=== PATIENT | male | born 1945 | race Caucasian/White ===

== ENCOUNTER 2018-10-07 10:31 | Outpatient (CLI) | payer MEDICARE, OTHER, SELFPAY ==
--- NOTE | 2018-10-07 10:32 | DI.RAD.S_ITS ---
PROCEDURE: PAIN L/S TRANSFORAMINAL INJECT INDICATIONS: spinal stenosis FINDINGS: Fluoroscopic spot filming was performed to verify placement of spinal needles at the L5-S1 level(s), as labeled on the films. Appropriate location(s) of the needle tip(s) was confirmed by injection of iodinated contrast. IMPRESSION: Fluoroscopy for pain management. Dictated by: Barbara Larkin M.D. on 10/07/2018 at 16:48 Approved by: Barbara Larkin M.D. on 10/07/2018 at 16:48
[2018-10-07 10:36] VITALS: BP 138/88; PULSE 72; RESP 16; TEMP 36.2; O2SAT 96
[2018-10-07 11:13] VITALS: BP 156/95; PULSE 65; RESP 17; O2SAT 97
[2018-10-07 11:17] VITALS: BP 156/95; PULSE 69; RESP 17; O2SAT 98
[2018-10-07 11:21] VITALS: BP 154/93; PULSE 66; RESP 18; O2SAT 97
[2018-10-07 11:25] VITALS: BP 167/101; PULSE 79; RESP 18; O2SAT 98
[2018-10-07] MEDS: DEXAMETHASONE 10 MG/ML VIAL 20 MG INJ (11:25)
[2018-10-07] MEDS: methylPREDNISolone acetate 80 MG/ML VIAL INJ (11:25)
[2018-10-07] MEDS: IOPAMIDOL 15 ML VIAL 3 ML INJ (11:25)
[2018-10-07] MEDS: BUPIVACAINE 0.25% (PF) VIAL 2 ML INJ (11:25)
[2018-10-07 11:35] VITALS: BP 147/78; PULSE 73; RESP 16; O2SAT 98
--- NOTE | 2018-10-07 11:36 | P.PCN_ITS ---
Procedures Date/Time Date of procedure: 10/07/18 Time of procedure: 11:34 General Procedure description: PREOP DIAGNOSIS 1. FORMAINAL STENOSIS WITH LE SYMPTOMS, POST OP DIAGNOSIS 1. FORMAINAL STENOSIS WITH LE SYMPTOMS, PROCEDURES 1.FLUOROSCOPICALLY GUIDED CONTRAST CONTROLLED TRANSFORAMINAL EPIDURAL STEROID INJECTION - RIGHT L5/S1 TFESI PHYSICIAN: Manuelito Castro DO INDICATIONS: Chris is referred by Dr. Greenberg for treatment of Foraminal Stenosis with right LE Symptoms FINDINGS Foraminal Nerve Root Compression secondary to disc disease and facet hypertrophy DESCRIPTION OF PROCEDURE Following denial of allergy and review of potential side effects and complications, including, but not necessarily limited to, infection, allergic reaction, local tissue breakdown, stroke, temporary or permanent nerve injury, paralysis, and possible , the patient indicated that the patient understood and agreed to proceed. An informed consent document was signed by the patient, witnessed by a nurse, and placed in the patient's chart. Additionally, other treatment options including medications, modalities, and physical therapy were reviewed with the patient. After review of previous anaesthesic history and IV conscious sedation the patient was deemed safe to proceed with todays procedure with IV conscious sedation as ASA class II designation. Safety time-out was performed to confirm patient ID, procedure to be performed and site of procedure. IV sedation was deemed unnecessary and thus not administered by the RN after DO order, during the course of the procedure while the patient remained responsive to all verbal commands In the prone position following sterile prep and drape of the lumbar region, the right L5/S1 posterior neuroforamen was identified fluoroscopically. The skin was anesthetized via a 25-gauge 1.5-inch needle with 1% lidocaine solution. At this point, a 25-gauge 3.5-inch spinal needle was atraumatically introduced and advanced under fluoroscopic guidance through the posterior right L5/S1 neuroforamen to approximately the anterior aspect of the canal. Depth was confirmed on lateral view. Following negative aspiration, injection of approximately 1.5 cc of Isovue 200 under live fluoroscopy in the AP view confirmed excellent flow along the nerve root, into the epidural space without vascular or intrathecal uptake observed Radiological data, including multiple fluoroscopic views of the lumbosacral spine, reveal a spinal needle at the right L5/S1 posterior neuroforamen. Subsequent views show flow of contrast material flowing superiorly and inferiorly along the nerve root confirming epidural flow. Subsequently, a test dose of 1.5 cc of 1% lidocaine solution was administered and patient was observed for two minutes for signs or symptoms of complications , including abdominal pain, shortness of breath, bilateral upper or lower extremity weakness, nausea and vomiting, prior to steroid injection. At this point, a total of 3 cc or 20 mg of dexamethasone and 80mg Depo Medrol was injected without incident. The procedure tolerated the procedure well without signs or symptoms of complications prior to transfer to the recovery area continued monitoring without incident. The patient was then transferred to the recovery area where they were observed for an appropriate time after the injection. The patient reported a VAS score of 7 prior to the procedure and a post-procedure VAS of 0. Total Fluoroscopy Time: 20.9 seconds Total Conscious Sedation Time: 24min POST OP INSTRUCTIONS The patient was provided a Pain Log to continue to record their response to the target-specific procedure prior to follow-up visit with their referring physician. Additionally, specific post-injection care instructions and a contact number to our office were provided if concerns arise regarding possible complications associated with the procedure are suspected. Manuelito Castro DO Complications: none
--- NOTE | 2018-10-07 11:38 | PC.NURSE ---
pt had no sedation and was taken to pre procedure room after assisting him off the table and into a wheelchair. pt stable. resumed monitoring in preprocedure room.
--- NOTE | 2018-10-07 11:41 | PC.NURSE ---
APPROX 1135 PT ARRIVED TO POST PROCEDURE AREA IN STABLE CONDITION. PT WAS NOT GIVEN ANY SEDATION MEDICATION.
== END 2018-10-07 12:05 | disposition home or self-care (01) ==
LOC: RAD 10:32
PROVIDERS: PCP Family Medicine; Visit Provider Physical Medicine & Rehabilitation
DX: M48.062 Spinal stenosis, lumbar region with neurogenic claudication (principal); M51.17 Intervertebral disc disorders with radiculopathy, lumbosacral region
CPT/HCPCS: 64483; J1040; J1100

== ENCOUNTER → 2018-10-30 11:00 | Outpatient (CLI) | payer MEDICARE, OTHER, SELFPAY ==
--- NOTE | 2018-10-30 11:04 | DI.RAD.S_ITS ---
PROCEDURE: XR WRIST LT MIN 3V INDICATIONS: Left thumb pain over metacarpal. TECHNIQUE: 3 views of the wrist were acquired. COMPARISON: None. FINDINGS: No acute fracture or dislocation. There are severe degenerative changes at the first carpometacarpal joint with joint space narrowing, osteophyte formation, and a calcified joint body identified. There is mild degenerative change at the distal radioulnar articulation and first metacarpophalangeal joint. IMPRESSION: Severe degenerative changes of the left first carpometacarpal joint. Dictated by: Aram Virk M.D. on 10/30/2018 at 12:05 Approved by: Aram Virk M.D. on 10/30/2018 at 12:07
== END ==
PROVIDERS: PCP Student in an Organized Health Care Education/Training Program; Visit Provider Student in an Organized Health Care Education/Training Program
DX: M79.642 Pain in left hand (principal); M18.12 Unilateral primary osteoarthritis of first carpometacarpal joint, left hand
CPT/HCPCS: 73110

== ENCOUNTER → 2018-11-18 10:31 | Outpatient (CLI) | payer MEDICARE, OTHER, SELFPAY ==
--- NOTE | 2018-11-18 10:34 | DI.RAD.S_ITS ---
PROCEDURE: XR LUMBAR SPINE MIN 4V INDICATIONS: SPINAL STENOSIS TECHNIQUE: 5 views of the lumbar spine were acquired. COMPARISON: None. FINDINGS: Bones: No fracture or focal osseous destruction. There is diffuse endplate spurring and sclerosis. Multilevel facet arthropathy. Severe narrowing of the L4-L5 and L5-S1 disc spaces. Moderate narrowing of the remaining lumbar disc spaces. Minimal anterolisthesis of L3 on L4 and straightening of the normal lumbar lordosis. There is levoscoliosis of the thoracolumbar spine. Bilateral hip joint degeneration. Soft tissues: Overlying bowel gas pattern is normal. No suspicious soft tissue calcifications. Oblique images: No pars defects. IMPRESSION: Severe multilevel lumbar degenerative disc disease and facet arthropathy, most pronounced at L4-L5 and L5-S1.. Levoscoliosis. Dictated by: Abiodun Gary M.D. on 11/18/2018 at 12:23 Approved by: Abiodun Gary M.D. on 11/18/2018 at 12:25
== END ==
PROVIDERS: Family Provider Student in an Organized Health Care Education/Training Program; PCP Student in an Organized Health Care Education/Training Program; Visit Provider Physical Medicine & Rehabilitation
DX: M48.062 Spinal stenosis, lumbar region with neurogenic claudication (principal); M51.16 Intervertebral disc disorders with radiculopathy, lumbar region; M51.17 Intervertebral disc disorders with radiculopathy, lumbosacral region; M41.85 Other forms of scoliosis, thoracolumbar region; M16.0 Bilateral primary osteoarthritis of hip; M47.26 Other spondylosis with radiculopathy, lumbar region; M47.27 Other spondylosis with radiculopathy, lumbosacral region
CPT/HCPCS: 72110

== ENCOUNTER 2018-12-16 14:00 | Outpatient (CLI) | payer MEDICARE, OTHER, SELFPAY ==
--- NOTE | 2018-12-16 14:03 | DI.RAD.S_ITS ---
PROCEDURE: PAIN L INTERLAMINAR/CAUDAL INJ INDICATIONS: Para Left L4/5 TL RAYMUNDO FINDINGS: Fluoroscopic spot filming was performed to verify placement of spinal needles at the L4-L5 posterior epidural intralaminar notch level, as labeled on the films. Appropriate location(s) of the needle tip(s) was confirmed by injection of iodinated contrast. IMPRESSION: Successful dorsal interlaminar notched needle tip localization for epidural steroid injection. Dictated by: Kendrick Grajeda M.D. on 12/16/2018 at 15:18 Approved by: Kendrick Grajeda M.D. on 12/16/2018 at 15:20
[2018-12-16 14:10] VITALS: BP 131/76; PULSE 70; RESP 18; TEMP 35.9; O2SAT 96
--- NOTE | 2018-12-16 14:20 | PM.PROC.1 ---
Procedures Date/Time Date of procedure: 12/16/18 Time of procedure: 14:51 General Procedure description: PROVIDER: Manuelito Castro DO Operative Note PREOP DIAGNOSIS 1. HNP WITH RADICULAR FEATURES, 2. MULTILEVEL CENTRAL STENOSIS, POST OP DIAGNOSIS 1. HNP WITH RADICULAR FEATURES, 2. MULTILEVEL CENTRAL STENOSIS PROCEDURES 1. FLUORSCOPICALLY GUIDED CONTRAST CONTROLLED INTERLAMINAR EPIDURAL STEROID INJECTION -L4/5 PHYSICIAN: Manuelito Castro DO INDICATIONS: Chris is referred by Dr. Maxwell for treatment of Bilateral Foraminal Stenosis R>L LE symptoms. FINDINGS Multilevel Central Spinal Stenosis with Nerve Root Compression DESCRIPTION OF PROCEDURE Fluoroscopically guided, contrast-controlled para left L4/5 translaminar epidural steroid injection. Following denial of allergy and review of potential side effects and complications, including, but not necessarily limited to, infection, allergic reaction, local tissue breakdown, temporary as well as permanent nerve injury, paralysis, stroke and possible , the patient indicated that the patient understood and agreed to proceed. An informed consent document was signed by the patient, witnessed by a nurse, and placed in the patient's chart. Additionally, other treatment options including modalities, medications, and physical therapy were reviewed with the patient. After review of previous anaesthesic history and IV conscious sedation the patient was deemed safe to proceed with todays procedure with IV conscious sedation as ASA class II designation. Safety time-out was performed to confirm patient ID, procedure to be performed and site of procedure. IV sedation was accomplished with a combination of 3mg was administered by the RN after DO order, titrated to patient comfort during the course of the procedure while the patient remained responsive to all verbal commands In the prone position, following sterile prep and drape of the lumbar region, the para left L4/5 translaminar space was identified fluoroscopically. The skin was anesthetized via a 25-gauge, 1.5-inch needle with 1% lidocaine solution. At this point, a 22-gauge short bevel spinal needle was atraumatically introduced and advanced under fluoroscopic guidance into the region of the para left L4/5 translaminar space. Depth was confirmed on lateral view. Radiological data, including multiple fluoroscopic views of the lumbar spine, reveal a spinal needle at the para left L4/5 translaminar space. Lateral views then show placement of the needle in the epidural space. Subsequent views show contrast material flowing superiorly and inferiorly in the epidural space. No vascular or intrathecal uptake is observed. At this point, using loss of resistance technique with saline and air, the epidural space was entered. This was confirmed following negative aspiration with injection of approximately 1.5 cc of Isovue 200, showing excellent epidural flow without vascular or intrathecal uptake. At this point, 1 cc of 1% lidocaine solution combined with 3 cc or 20 mg of dexamethasone and 80mg Depo medrol was injected without incident. The patient tolerated the procedure well without signs or symptoms of complications prior to transfer to the recovery area continued monitoring without incident. The patient was then transferred to the recovery area where they were observed for an appropriate period of time after the injection. The patient reported a VAS score of 6 prior to the procedure and a post-procedure VAS of 0. Total Fluoroscopy Time: 11.8 seconds, 8.99 mGy Total Conscious Sedation Time: 24min POST OP INSTRUCTIONS The patient was provided a Pain Log to continue to record their response to the target-specific procedure prior to follow-up visit with their referring physician. Additionally, specific post-injection care instructions and a contact number to our office were provided if concerns arise regarding possible complications associated with the procedure are suspected. Manuelito Castro, Complications: none
[2018-12-16] MEDS: MIDAZOLAM 5 MG/5 ML VIAL IV (14:30)
[2018-12-16 14:33] VITALS: BP 144/82; PULSE 70; RESP 13; O2SAT 99
[2018-12-16 14:38] VITALS: BP 159/87; PULSE 83; RESP 20; O2SAT 99
[2018-12-16 14:43] VITALS: BP 122/82; PULSE 86; RESP 21; O2SAT 99
--- NOTE | 2018-12-16 14:50 | PC.NURSE ---
Pt tolerated procedure well. pt alert and awake, able to get off table with minimal assist. Transferred via W/C to pre procedure room for continued monitoring with Monica CESPEDES.
--- NOTE | 2018-12-16 14:53 | P.PCN_ITS ---
Procedures Date/Time Date of procedure: 12/16/18 Time of procedure: 14:51 General Procedure description: PROVIDER: Manuelito Castro DO Operative Note PREOP DIAGNOSIS 1. HNP WITH RADICULAR FEATURES, 2. MULTILEVEL CENTRAL STENOSIS, POST OP DIAGNOSIS 1. HNP WITH RADICULAR FEATURES, 2. MULTILEVEL CENTRAL STENOSIS PROCEDURES 1. FLUORSCOPICALLY GUIDED CONTRAST CONTROLLED INTERLAMINAR EPIDURAL STEROID INJECTION -L4/5 PHYSICIAN: Manuelito Castro DO INDICATIONS: Chris is referred by Dr. Maxwell for treatment of Bilateral Foraminal Stenosis R> L LE symptoms. FINDINGS Multilevel Central Spinal Stenosis with Nerve Root Compression DESCRIPTION OF PROCEDURE Fluoroscopically guided, contrast-controlled para left L4/5 translaminar epidural steroid injection. Following denial of allergy and review of potential side effects and complications, including, but not necessarily limited to, infection, allergic reaction, local tissue breakdown, temporary as well as permanent nerve injury, paralysis, stroke and possible , the patient indicated that the patient understood and agreed to proceed. An informed consent document was signed by the patient, witnessed by a nurse, and placed in the patient's chart. Additionally, other treatment options including modalities, medications, and physical therapy were reviewed with the patient. After review of previous anaesthesic history and IV conscious sedation the patient was deemed safe to proceed with todays procedure with IV conscious sedation as ASA class II designation. Safety time-out was performed to confirm patient ID, procedure to be performed and site of procedure. IV sedation was accomplished with a combination of 3mg was administered by the RN after DO order , titrated to patient comfort during the course of the procedure while the patient remained responsive to all verbal commands In the prone position, following sterile prep and drape of the lumbar region, the para left L4/5 translaminar space was identified fluoroscopically. The skin was anesthetized via a 25-gauge, 1.5-inch needle with 1% lidocaine solution. At this point, a 22-gauge short bevel spinal needle was atraumatically introduced and advanced under fluoroscopic guidance into the region of the para left L4/5 translaminar space. Depth was confirmed on lateral view. Radiological data, including multiple fluoroscopic views of the lumbar spine, reveal a spinal needle at the para left L4/5 translaminar space. Lateral views then show placement of the needle in the epidural space. Subsequent views show contrast material flowing superiorly and inferiorly in the epidural space. No vascular or intrathecal uptake is observed. At this point, using loss of resistance technique with saline and air, the epidural space was entered. This was confirmed following negative aspiration with injection of approximately 1.5 cc of Isovue 200, showing excellent epidural flow without vascular or intrathecal uptake. At this point, 1 cc of 1 % lidocaine solution combined with 3 cc or 20 mg of dexamethasone and 80mg Depo medrol was injected without incident. The patient tolerated the procedure well without signs or symptoms of complications prior to transfer to the recovery area continued monitoring without incident. The patient was then transferred to the recovery area where they were observed for an appropriate period of time after the injection. The patient reported a VAS score of 6 prior to the procedure and a post- procedure VAS of 0. Total Fluoroscopy Time: 11.8 seconds, 8.99 mGy Total Conscious Sedation Time: 24min POST OP INSTRUCTIONS The patient was provided a Pain Log to continue to record their response to the target-specific procedure prior to follow-up visit with their referring physician. Additionally, specific post-injection care instructions and a contact number to our office were provided if concerns arise regarding possible complications associated with the procedure are suspected. Manuelito Castro, Complications: none
[2018-12-16 14:54] VITALS: BP 102/87; PULSE 84; RESP 16; O2SAT 95
--- NOTE | 2018-12-16 14:56 | PC.NURSE ---
ACCEPTED CARE OF PT IN POST PROC AREA. PT IN STABLE CONDITION
[2018-12-16] MEDS: BUPIVACAINE 0.25% (PF) VIAL 2 ML INJ (14:58)
[2018-12-16] MEDS: methylPREDNISolone acetate 80 MG/ML VIAL INJ (14:59)
[2018-12-16] MEDS: IOPAMIDOL 15 ML VIAL 3 ML INJ (14:59)
[2018-12-16] MEDS: DEXAMETHASONE 10 MG/ML VIAL 20 MG INJ (14:59)
[2018-12-16 15:00] VITALS: BP 119/73; PULSE 81; RESP 16; O2SAT 96
--- NOTE | 2018-12-17 13:12 | PC.NURSE ---
Follow up call made and message left as pt didn't answer the phone.
== END 2018-12-16 15:09 | disposition home or self-care (01) ==
LOC: RAD 14:02
PROVIDERS: PCP Student in an Organized Health Care Education/Training Program; Visit Provider Physical Medicine & Rehabilitation
DX: M51.16 Intervertebral disc disorders with radiculopathy, lumbar region (principal); M48.062 Spinal stenosis, lumbar region with neurogenic claudication
CPT/HCPCS: 62323; 99152; J1040; J1100; J2250

== ENCOUNTER → 2019-06-12 11:08 | Outpatient (CLI) | payer MEDICARE, OTHER, SELFPAY ==
[2019-06-12 12:10] LABS: Add Manual Diff / Slide Review NO; Basophils Absolute Auto 100 /uL (0-100); Basophils Percent Auto 0.6 % (0-2); Eosinophils Absolute Auto 200 /uL (0-450); Eosinophils Percent Auto 2.4 % (2-4); Hematocrit 43.3 % (41-53); Hemoglobin 15.1 g/dL (13.5-17.5); Lymphocytes Absolute Auto 1100 /uL (1100-4500); Lymphocytes Percent Auto 10.6 % (25-40); Mean Corpuscular HGB Conc 34.9 % (30-36); Mean Corpuscular Hemoglobin 32.1 PG (26-34); Monocytes Absolute Auto 800 /uL (0-900); Monocytes Percent Auto 7.3 % (3-14); Neutrophils Absolute Auto 8100 /uL (1500-7000); Neutrophils Percent Auto 79.1 % (50-75); Platelet Count 219 X10^3/uL (150-400); Red Cell Distribution Width 13.1 % (11.6-14.8); White Blood Cell Count 10.3 X10^3/uL (4.5-11.0)
[2019-06-12 12:39] LABS: BUN Creatinine Ratio 16.7 (6-22); Blood Urea Nitrogen 20 mg/dL (9-20); Calcium 9.5 mg/dL (8.4-10.2); Carbon Dioxide 30 mmol/L (22-32); Chloride 102 mmol/L (98-107); Estimated Glomerular Filt Rate 59.5 mL/min (>60); Glucose 104 mg/dL (80-110); HEMOLYSIS < 15 (0-50); Sodium 141 mmol/L (137-145)
[2019-06-12 12:51] LABS: Vitamin D 25 Hydroxy (D3) 54.2 ng/mL (30.0-100.0)
[2019-06-12 13:06] LABS: TSH w/ Reflex to FT4 0.84 uIU/mL (0.47-4.68)
== END ==
PROVIDERS: PCP Student in an Organized Health Care Education/Training Program; Visit Provider Student in an Organized Health Care Education/Training Program
DX: E55.9 Vitamin D deficiency, unspecified (principal); R05 Cough; R61 Generalized hyperhidrosis; I10 Essential (primary) hypertension
CPT/HCPCS: 36415; 80048; 82306; 84443; 85025

== ENCOUNTER → 2019-06-15 13:09 | Outpatient (CLI) | payer MEDICARE, OTHER, SELFPAY ==
--- NOTE | 2019-06-15 13:14 | DI.CT.S_ITS ---
PROCEDURE: CT CHEST WO CON INDICATIONS: Cough, wheeze, >40 packyear smoker TECHNIQUE: Noncontrast 5 mm thick sections acquired from the pulmonary apices to the posterior costophrenic angles. 7 mm thick coronal and sagittal MIP reformats were then acquired. For radiation dose reduction, the following was used: automated exposure control, adjustment of mA and/or kV according to patient size. COMPARISON: [facility], CT, CT-IVP, 07/21/2012, 9:13. FINDINGS: Image quality: Excellent. Lungs and pleura: No acute consolidation. Scattered subsegmental atelectasis and/or scarring. 3 mm nodule seen in the subpleural left lung base on image 39 series 4, technically indeterminate. No pleural effusions or pneumothorax. Central and peripheral airways are patent and normal in caliber. Lingular scarring/atelectasis. Mediastinum: Heart size is normal. Coronary artery calcifications are present. No pericardial effusion. No mediastinal adenopathy by size criteria. Thoracic aorta and central pulmonary arteries are normal in size. Esophagus is normal in caliber. No hiatal hernia. Bones and chest wall: No suspicious bony lesions. No vertebral body compression fractures. No axillary or supraclavicular adenopathy by size criteria. Thyroid gland negative. Multilevel discogenic changes. Abdomen: Visualized upper abdominal solid organs and bowel loops appear normal in the absence of contrast. IMPRESSION: No acute consolidation. 3 mm pulmonary nodule involving the left lung base, indeterminate. Early metastatic/malignant possibilities cannot be excluded and therefore recommend followup with noncontrast chest CT in one year. Scattered scarring and atelectasis. Dictated by: Abiodun Gary M.D. on 06/15/2019 at 14:28 Approved by: Abiodun Gary M.D. on 06/15/2019 at 14:34
== END ==
PROVIDERS: PCP Student in an Organized Health Care Education/Training Program; Visit Provider Student in an Organized Health Care Education/Training Program
DX: R05 Cough (principal); R06.2 Wheezing; R91.1 Solitary pulmonary nodule; F17.210 Nicotine dependence, cigarettes, uncomplicated
CPT/HCPCS: 71250

== ENCOUNTER 2019-10-15 13:19 | Outpatient (CLI) | payer MEDICARE, OTHER, SELFPAY ==
--- NOTE | 2019-10-15 13:20 | DI.RAD.S_ITS ---
PROCEDURE: PAIN L INTERLAMINAR/CAUDAL INJ INDICATIONS: SPINAL STENOSIS FINDINGS: Fluoroscopic spot filming was performed to verify placement of spinal needles at the L4-L5 level(s), as labeled on the films. Appropriate location(s) of the needle tip(s) was confirmed by injection of iodinated contrast. IMPRESSION: Fluoroscopy for pain management. Dictated by: Barbara Larkin M.D. on 10/15/2019 at 15:37 Approved by: Barbara Larkin M.D. on 10/15/2019 at 15:38
[2019-10-15 13:30] VITALS: BP 131/80; PULSE 76; RESP 16; TEMP 36.1; O2SAT 94
[2019-10-15 14:10] VITALS: BP 136/81; PULSE 83; RESP 16; O2SAT 98
[2019-10-15] MEDS: fentaNYL 100 MCG/2 ML INJ 50 MCG IV (14:11)
[2019-10-15] MEDS: MIDAZOLAM 5 MG/5 ML VIAL IV (14:11)
[2019-10-15 14:15] VITALS: BP 113/75; PULSE 82; RESP 16; O2SAT 98
[2019-10-15 14:20] VITALS: BP 125/78; PULSE 81; RESP 18; O2SAT 96
--- NOTE | 2019-10-15 14:34 | P.PCN_ITS ---
Procedures Date/Time Date of procedure: 10/15/19 Time of procedure: 14:34 General Procedure description: PROVIDER: Manuelito Castro DO Operative Note PREOP DIAGNOSIS 1. HNP WITH RADICULAR FEATURES, 2. MULTILEVEL CENTRAL STENOSIS, POST OP DIAGNOSIS 1. HNP WITH RADICULAR FEATURES, 2. MULTILEVEL CENTRAL STENOSIS PROCEDURES 1. FLUORSCOPICALLY GUIDED CONTRAST CONTROLLED INTERLAMINAR EPIDURAL STEROID INJECTION -L4/5 PHYSICIAN: Manuelito Castro DO INDICATIONs: Chris is referred by Dr. Maxwell for treatment of Bilateral Foraminal Stenosis R>L LE symptoms. FINDINGS Multilevel Central Spinal Stenosis with Nerve Root Compression DESCRIPTION OF PROCEDURE Fluoroscopically guided, contrast-controlled L4/5 translaminar epidural steroid injection. Following review of allergy and review of potential side effects and complications, including, but not necessarily limited to, infection, allergic reaction, local tissue breakdown, temporary as well as permanent nerve injury, paralysis, stroke and possible , the patient indicated that the patient understood and agreed to proceed. An informed consent document was signed by the patient, witnessed by a nurse, and placed in the patient's chart. Additionally, other treatment options including modalities, medications, and physical therapy were reviewed with the patient. After review of previous anaesthesic history and IV conscious sedation the patient was deemed safe to proceed with todays procedure with IV conscious sedation as ASA class II designation. Safety time-out was performed to confirm patient ID, procedure to be performed and site of procedure. IV sedation was a ccomplished with a combination of 2mg of Versed and 50mcg of Fentanyl was administered by the RN after DO order, titrated to patient comfort during the course of the procedure while the patient remained responsive to all verbal commands In the prone position, following sterile prep and drape of the lumbar region, the L4/5 translaminar space was identified fluoroscopically. The skin was anesthetized via a 25-gauge, 1.5-inch needle with 1% lidocaine solution. At this point, a 22-gauge short bevel spinal needle was atraumatically introduced and advanced under fluoroscopic guidance into the region of the L4/5 translaminar space. Depth was confirmed on lateral view. Radiological data, including multiple fluoroscopic views of the lumbar spine, reveal a spinal needle at the L4/5 translaminar space. Lateral views then show placement of the needle in the epidural space. Subsequent views show contrast material flowing superiorly and inferiorly in the epidural space. No vascular or intrathecal uptake is observed. At this point, using loss of resistance technique with saline and air, the epidural space was entered. This was confirmed following negative aspiration with injection of approximately 1.5 cc of Isovue 200, showing excellent epidural flow without vascular or intrathecal uptake. At this point, 1 cc of 1% lidocaine solution combined with 3cc or 20mg of dexamethasone and 6mg betamethasone was injected without incident. The patient tolerated the procedure well without signs or symptoms of complications prior to transfer to the recovery area continued monitoring w ithout incident. The patient was then transferred to the recovery area where they were observed for an appropriate period of time after the injection. The patient reported a VAS score of 6 prior to the procedure and a post- procedure VAS of 0. Total Fluoroscopy Time: 11.8 seconds, 8.99 mGy Total Conscious Sedation Time: 24min POST OP INSTRUCTIONS The patient was provided a Pain Log to continue to record their response to the target-specific procedure prior to follow-up visit with their referring physician. Additionally, specific post-injection care instructions and a contact number to our office were provided if concerns arise regarding possible complications associated with the procedure are suspected. Manuelito Castro DO Complications: none
[2019-10-15] MEDS: BETAMETHASONE 30 MG/5 ML MDV 6 MG INJ (14:36)
[2019-10-15] MEDS: IOPAMIDOL 15 ML VIAL 3 ML INJ (14:36)
[2019-10-15] MEDS: BUPIVACAINE 0.25% (PF) VIAL 2 ML INJ (14:36)
[2019-10-15] MEDS: DEXAMETHASONE 10 MG/ML VIAL 20 MG INJ (14:36)
[2019-10-15 14:39] VITALS: BP 122/71; PULSE 77; RESP 16; O2SAT 94
--- NOTE | 2019-10-15 14:39 | PC.NURSE ---
Post procedure transfer note: VSS, O2 SAt WNL on 2L throughout procedure. Able to transfer to w/c from procedure table without difficulties. No complaints of pain or unususal numbness or tingling to lower extremities. Handoff report given to Cely Phillips RN.
--- NOTE | 2019-10-15 14:40 | PC.NURSE ---
ACCEPTED CARE OF PT IN POST PROC AREA IN STABLE CONDITION.
[2019-10-15 14:43] VITALS: BP 119/70; PULSE 76; RESP 16; O2SAT 94
== END 2019-10-15 14:54 | disposition home or self-care (01) ==
PROVIDERS: PCP Student in an Organized Health Care Education/Training Program; Visit Provider Physical Medicine & Rehabilitation
DX: M51.16 Intervertebral disc disorders with radiculopathy, lumbar region (principal); M48.062 Spinal stenosis, lumbar region with neurogenic claudication
CPT/HCPCS: 62323; 99152; J0702; J1100; J2250; J3010

== ENCOUNTER → 2020-05-12 11:03 | Outpatient (CLI) | payer MEDICARE, OTHER, SELFPAY ==
--- NOTE | 2020-05-12 11:07 | DI.MRI.S_ITS ---
PROCEDURE: MR LUMBAR SPINE WO CON INDICATIONS: Spinal stenosis TECHNIQUE: Noncontrast sagittal T1 spin echo and T2 fast echo, sagittal STIR, axial T1 and T2 fast spin echo through the lumbar spine. In cases with scoliosis, additional coronal T2 fast spin echo may be performed. COMPARISON: [facility], MR, L-SPINE WITHOUT CONTRAST, 08/08/2017, 10:42. [facility], CR, XR LUMBAR SPINE MIN 4V, 11/18/2018, 10:38. [facility], MR, L-SPINE WITHOUT CONTRAST, 09/24/2012, 8:35. FINDINGS: Image quality: Excellent. Alignment and Curvature: There is minimal retrolisthesis seen at T12-L1, L4-L5, and L5-S1, with minimal anterolisthesis at L3-L4. Bone Marrow: Marrow is of normal overall signal. Scattered foci are seen, which are hyperintense on T1-weighted and T2-weighted imaging, which are most consistent with benign vertebral body hemangiomas. No acute vertebral body compression fractures. Spinal Cord: Conus medullaris terminates at the L1 level. Visualized cord demonstrates normal signal and size. Paraspinous Soft Tissues: No paravertebral masses. T12-L1: Moderate to severe loss of disc height and disc signal are seen. Bridging endplate osteophytes are seen. Posteriorly projected endplate osteophytes are seen. Reactive marrow endplate changes are seen, which are hyperintense on T1-weighted and T2-weighted imaging and most consistent with fatty metaplasia (Modic type II changes). Moderate disc bulge is seen, which is eccentric to the right. Moderate facet joint hypertrophy is seen. There is moderate right-sided and no left-sided neural foraminal narrowing seen. Mild to moderate central canal narrowing is seen. Stable from the prior study. L1-L2: The disc height is well-preserved. Loss of disc signal is seen at this level. No neural foraminal or central canal narrowing can be seen. Stable from the prior study. L2-L3: Moderate loss of disc height is seen. Loss of disc signal is seen. Moderate disc bulge is seen, which is eccentric to the right. There is moderate to prominent facet hypertrophy seen, right worse than left. There is moderate to severe bilateral neural foraminal narrowing seen. There is a degree of compression seen upon the exiting nerve roots. Moderate to severe central canal narrowing is seen, which is exacerbated by prominent epidural fat posteriorly, as on series 5 image 15. When comparison is made with the prior examination, these findings are similar. L3-L4: Phpm-tu-hihvckki loss of disc height and disc signal can be seen. Moderate disc bulge is seen, with a central/left disc extrusion, as on series 5 image 18 and on series 2 image 8. Moderate to severe facet hypertrophy is seen. There is moderate right-sided and at least moderate left-sided neural foraminal narrowing seen in severe central canal narrowing seen, as on series 5 image 19. The central canal narrowing is exacerbated by prominent epidural fat posteriorly. The disc extrusion is new compared to 2017. L4-L5: Moderate to severe loss of disc height and disc signal are seen. Reactive marrow endplate changes are seen, which are hyperintense on T1-weighted and T2-weighted imaging and most consistent with fatty metaplasia (Modic type II changes). Bridging endplate osteophytes are seen. Posteriorly projected endplate osteophytes are seen. Moderate disc bulge is seen, which is eccentric to the left. There is at least moderate facet hypertrophy seen at this level. There is at least moderate bilateral neural foraminal narrowing seen at this level. Moderate central canal narrowing is seen. Relatively prominent epidural fat seen. When comparison is made with the prior examination, these findings are similar. L5-S1: Moderate loss of disc height is seen. Loss of disc signal is seen. Moderate disc bulge is seen. There is a central disc protrusion seen. Moderate facet joint hypertrophy is seen. There is moderate right-sided and at least moderate left-sided neural foraminal narrowing seen. Minimal central canal narrowing is seen. No significant change from the prior. IMPRESSION: There is a new disc extrusion seen at the L3-L4 level, with severe central canal narrowing. Otherwise, stable relatively prominent degenerative changes are seen. Dictated by: Star Smith M.D. on 05/12/2020 at 10:52 Approved by: Star Smith M.D. on 05/12/2020 at 11:00
== END ==
PROVIDERS: PCP Student in an Organized Health Care Education/Training Program; Referring Provider Physical Medicine & Rehabilitation; Visit Provider Physical Medicine & Rehabilitation
DX: M51.16 Intervertebral disc disorders with radiculopathy, lumbar region (principal); M51.17 Intervertebral disc disorders with radiculopathy, lumbosacral region; M47.26 Other spondylosis with radiculopathy, lumbar region; M47.27 Other spondylosis with radiculopathy, lumbosacral region
CPT/HCPCS: 72148

== ENCOUNTER → 2020-06-06 09:15 | Outpatient (CLI) | payer MEDICARE, OTHER, SELFPAY ==
[2020-06-07 13:59] LABS: COVID19 Sendout NOT DETECTED (Not Detect)
== END ==
PROVIDERS: PCP Student in an Organized Health Care Education/Training Program; Visit Provider Physician Assistant
DX: Z01.812 Encounter for preprocedural laboratory examination (principal)
CPT/HCPCS: 87635

== ENCOUNTER 2020-06-09 13:53 | Outpatient (CLI) | payer MEDICARE, OTHER, SELFPAY ==
[2020-06-09] VITALS (7 sets, daily range): BP systolic 122–146; BP diastolic 73–81; PULSE 69–83; RESP 15–16; TEMP 36.8; O2SAT 95–98
--- NOTE | 2020-06-09 13:55 | DI.RAD.S_ITS ---
PROCEDURE: PAIN L INTERLAMINAR/CAUDAL INJ INDICATIONS: SPONDYLOSIS FINDINGS: Fluoroscopic spot filming was performed to verify placement of spinal needles at the L4-L5 paramedian interlaminar level(s), as labeled on the films. Appropriate location(s) of the needle tip(s) was confirmed by injection of iodinated contrast. IMPRESSION: Successful needle tip localization at the L4-5 level for translaminar epidural steroid injection. Dictated by: Kendrick Grajeda M.D. on 06/09/2020 at 16:22 Approved by: Kendrick Grajeda M.D. on 06/09/2020 at 16:22
[2020-06-09] MEDS: MIDAZOLAM 5 MG/5 ML VIAL IV (14:48)
[2020-06-09] MEDS: IOPAMIDOL 15 ML VIAL 3 ML INJ (14:58)
[2020-06-09] MEDS: BUPIVACAINE 0.25% (PF) VIAL 2 ML INJ (14:58)
[2020-06-09] MEDS: BETAMETHASONE 30 MG/5 ML MDV 6 MG INJ (14:58)
[2020-06-09] MEDS: DEXAMETHASONE 10 MG/ML VIAL 20 MG INJ (14:58)
--- NOTE | 2020-06-09 15:05 | P.PCN_ITS ---
Date/Time/Diagnoses Date of procedure: 06/09/20 Time of procedure: 15:05 Pre-procedure diagnosis: 1. HNP WITH RADICULAR FEATURES, 2. MULTILEVEL CENTRAL STENOSIS, Post-procedure diagnosis: same Procedure Notes Procedure: 1. FLUOROSCOPICALLY GUIDED CONTRAST CONTROLLED INTERLAMINAR EPIDURAL STEROID INJECTION - Para Left L4/5 Indications: Chris is referred by Dr. Maxwell for treatment of Bilateral Foraminal Stenosis R>L LE symptoms. Physician: Manuelito Castro Total Fluoroscopy time (seconds): 6 Total sedation minutes: 24 Complications: none Procedure in detail & Post-procedure care: FINDINGS Multilevel Central Spinal Stenosis with Nerve Root Compression DESCRIPTION OF PROCEDURE Fluoroscopically guided, contrast-controlled L4/5 translaminar epidural steroid injection. Following review of allergy and review of potential side effects and complications, including, but not necessarily limited to, infection, allergic reaction, local tissue breakdown, temporary as well as permanent nerve injury, paralysis, stroke and possible , the patient indicated that the patient understood and agreed to proceed. An informed consent document was signed by the patient, witnessed by a nurse, and placed in the patient's chart. Additionally, other treatment options including modalities, medications, and physical therapy were reviewed with the patient. After review of previous anaesthesic history and IV conscious sedation the patient was deemed safe to proceed with today?s procedure with IV conscious sedation as ASA class II designation. Safety time-out was performed to confirm patient ID, procedure to be performed and site of procedure. IV sedation was accomplished with a combination of 2mg of Versed was administered by the RN after DO order, titrated to patient comfort during the course of the procedure while the patient remained responsive to all verbal commands In the prone position, following sterile prep and drape of the lumbar region, the L4/5 translaminar space was identified fluoroscopically. The skin was anesthetized via a 25-gauge, 1.5-inch needle with 1% lidocaine solution. At this point, a 22-gauge short bevel spinal needle was atraumatically introduced and advanced under fluoroscopic guidance into the region of the L4/5 translaminar space. Depth was confirmed on lateral view. Radiological data, including multiple fluoroscopic views of the lumbar spine, reveal a spinal needle at the L4/5 translaminar space. Lateral views then show placement of the needle in the epidural space. Subsequent views show contrast material flowing superiorly and inferiorly in the epidural space. No vascular or intrathecal uptake is observed. At this point, using loss of resistance technique with saline and air, the epidural space was entered. This was confirmed following negative aspiration with injection of approximately 1.5 cc of Isovue 200, showing excellent epidural flow without vascular or intrathecal uptake. At this point, 1 cc of 1% lido nhan solution combined with 3cc or 20mg of dexamethasone and 6mg betamethasone was injected without incident. The patient tolerated the procedure well without signs or symptoms of complications prior to transfer to the recovery area continued monitoring without incident. The patient was then transferred to the recovery area where they were observed for an appropriate period of time after the injection. The patient reported a VAS score of 6 prior to the procedure and a post- procedure VAS of 0. POST OP INSTRUCTIONS The patient was provided a Pain Log to continue to record their response to the target-specific procedure prior to follow-up visit with their referring physician. Additionally, specific post-injection care instructions and a contact number to our office were provided if concerns arise regarding possible complications associated with the procedure are suspected.
--- NOTE | 2020-06-09 15:12 | PC.NURSE ---
1510:arrived to pre proc room via , stable transfer from wc to chair. monitoring resumed
== END 2020-06-09 15:34 | disposition home or self-care (01) ==
LOC: RAD 13:55
PROVIDERS: PCP Student in an Organized Health Care Education/Training Program; Referring Provider Physical Medicine & Rehabilitation; Visit Provider Physical Medicine & Rehabilitation
DX: M51.16 Intervertebral disc disorders with radiculopathy, lumbar region (principal); M48.061 Spinal stenosis, lumbar region without neurogenic claudication
CPT/HCPCS: 62323; 99152; J0702; J1100; J2250; J3010

== ENCOUNTER → 2020-06-21 10:48 | Outpatient (CLI) | payer MEDICARE, OTHER, SELFPAY ==
--- NOTE | 2020-06-21 11:09 | DI.CT.S_ITS ---
PROCEDURE: CT CHEST WO CON INDICATIONS: Pulmonary nodule TECHNIQUE: Noncontrast 5 mm thick sections acquired from the pulmonary apices to the posterior costophrenic angles. 1 mm lung window, 5 mm thick coronal and sagittal and 7 mm axial MIP reformats were then acquired. For radiation dose reduction, the following was used: automated exposure control, adjustment of mA and/or kV according to patient size. COMPARISON: [facility], CT, CT CHEST WO [facility], 06/15/2019, 13:12. FINDINGS: Image quality: Excellent. Lungs and pleura: No acute air space opacities. Curvilinear opacity in the lingula is unchanged and likely represents atelectasis or scarring. No new or enlarging pulmonary nodules. Stable 3 mm subpleural pulmonary nodule in the left lower lobe, (3/167). Minimal pleural thickening in the left lower thorax is unchanged. Mild atelectasis at the right lung base. No pleural effusions or pneumothorax. Central and peripheral airways are patent and normal in caliber. Mediastinum: Heart size is normal. Coronary artery calcifications. No pericardial effusion. No mediastinal adenopathy by size criteria. Thoracic aorta and central pulmonary arteries are normal in size. Esophagus is normal in caliber. No hiatal hernia. Bones and chest wall: Minimal gynecomastia. No suspicious bony lesions. No vertebral body compression fractures. No axillary or supraclavicular adenopathy by size criteria. Thyroid gland is unremarkable . Abdomen: Visualized upper abdominal solid organs and bowel loops appear normal in the absence of contrast. IMPRESSION: No metastatic disease identified. Stable 3 mm left lower lobe subpleural nodule. No new or enlarging pulmonary nodules. No adenopathy seen. Dictated by: Sina Casillas M.D. on 06/21/2020 at 18:33 Approved by: Sina Casillas M.D. on 06/21/2020 at 18:40
== END ==
PROVIDERS: PCP Student in an Organized Health Care Education/Training Program; Referring Provider Student in an Organized Health Care Education/Training Program; Visit Provider Student in an Organized Health Care Education/Training Program
DX: R91.1 Solitary pulmonary nodule (principal); I25.10 Atherosclerotic heart disease of native coronary artery without angina pectoris
CPT/HCPCS: 71250

== ENCOUNTER → 2020-08-17 15:20 | Outpatient (CLI) | payer MEDICARE, OTHER, SELFPAY ==
[2020-08-17 16:23] LABS: BUN Creatinine Ratio 13.9 (6-22); Blood Urea Nitrogen 14 mg/dL (9-20); Calcium 8.9 mg/dL (8.4-10.2); Carbon Dioxide 28 mmol/L (22-32); Chloride 101 mmol/L (98-107); Estimated Glomerular Filt Rate > 60.0 mL/min (>60); Glucose 106 mg/dL (80-110); HEMOLYSIS < 15 (0-50); Potassium 4.4 mmol/L (3.4-5.1); Sodium 136 mmol/L (137-145)
== END ==
PROVIDERS: PCP Student in an Organized Health Care Education/Training Program; Referring Provider Student in an Organized Health Care Education/Training Program; Visit Provider Student in an Organized Health Care Education/Training Program
DX: I10 Essential (primary) hypertension (principal); Z79.1 Long term (current) use of non-steroidal anti-inflammatories (NSAID)
CPT/HCPCS: 36415; 80048

== ENCOUNTER → 2021-08-24 07:54 | Outpatient (CLI) | payer MEDICARE, OTHER, SELFPAY ==
--- NOTE | 2021-08-24 | DI.ECHO.S_ITS ---
[facility]---------[facility] +---------+ : : [address] : [place] : : : : [id number] : : : : Phone: [phone] +---------+ Echocardiogram Report + + :Name: CHRISTOPHER FUNES Study Date: 08/24/2021 Height: 67 in : :[facility] ReadingLocation: Weight: 150 lb : : Gender: Male BSA: 1.8 m2 : :: 1945 Age: 76 yrs BP: 141/99 mmHg: :Reason For Study: ATHEROSCLEROSIS : :Ordering Physician: JOLLY, : :MAYLIN Richard Performed By: Adrienne Simon : :Referring: MAYLIN HOOKS : + + Interpretation Summary The ejection fraction is estimated to be 55-60%. Normal diastolic function. Normal right ventricular systolic function. Mild tricuspid regurgitation. Normal PASP. Procedure: A two-dimensional transthoracic echocardiogram with color flow and Doppler was performed. The study quality was technically adequate. Comparison is made with the echocardiogram of 01/06/2018. [facility] [employer]. The patient was in sinus rhythm with heart rates between 75-81 bpm during the exam. Left Ventricle: The left ventricle is normal in size and wall thickness. The ejection fraction is estimated to be 55-60%. Diastolic parameters suggest probable normal left ventricular diastolic function and normal filling pressures. Right Ventricle: The right ventricle is normal in size and function. Atria: The left atrial size is normal. Right atrial size is normal. There is no Doppler evidence for an interatrial shunt. Mitral Valve: The mitral valve is normal in structure and function. There is no mitral regurgitation noted. Aortic Valve: The aortic valve is trileaflet. The aortic valve opens well. There is no aortic valve stenosis. No aortic regurgitation is present. Tricuspid Valve: The tricuspid valve is normal in structure and function. There is mild tricuspid regurgitation. The right ventricular systolic pressure is estimated to be at least 25-30 mmHg based on an estimated right atrial pressure of 3 mm Hg. Pulmonic Valve: The pulmonic valve is not well seen, but is grossly normal. There is no pulmonic valvular regurgitation. Great Vessels: The aortic root is normal size. The ascending aorta is mildly enlarged. The IVC is of normal diameter and collapses greater than 50% with a sniff. This suggests a low right atrial pressure of 3 mm Hg. Pericardium/ Pleura There is no pericardial effusion. There is no pleural effusion. MMode/2D Measurements & Calculations LVIDd: 4.4 cm LVOT diam: 2.3 cm LVIDs: 3.4 cm Ao root diam: 3.7 cm FS: 23.7 % asc Aorta Diam: 3.7 cm IVSd: 0.70 cm Ao Arch Diam (Prox Trans): 2.9 cm LVPWd: 0.84 cm LV delaney. diameter/BSA (cm/m^2): 2.5 LV sys. diameter/BSA (cm/m^2): 1.9 LA A2 area: 19.8 cm2 RA long axis: 5.3 cm LA A4 area: 16.2 cm2 RA area: 15.3 cm2 LA length (vol): 5.0 cm RA vol: 37.7 ml LA vol: 54.2 ml RA : 21.1 ml/m2 LA vol index: 30.3 ml/m2 IVC diam: 1.2 cm RVD1 (basal): 3.9 cm RVD2 (mid): 3.5 cm TAPSE: 2.0 cm Doppler Measurements & Calculations Ao V2 max: 95.2 cm/sec LVOT Max Pal: 62.8 cm/sec Ao V2 mean: 72.4 cm/sec LV V1 max P.6 mmHg Ao max P.6 mmHg LV V1 VTI: 12.4 cm Ao mean P.3 mmHg LEX(I,D): 2.4 cm2 Ao V2 VTI: 21.2 cm LEX(V,D): 2.7 cm2 sev ratio: 0.58 LEX indexed to BSA (cm^2/m^2): 1.3 MV E max pal: 48.3 cm/sec TR max pal: 239.0 cm/sec MV A max pal: 55.1 cm/sec TR max P.8 mmHg MV E/A: 0.88 PA V2 max: 92.3 cm/sec Med Peak E' Pal: 8.6 cm/sec PA V2 mean: 57.9 cm/sec E/E' med: 5.6 PA mean P.6 mmHg Lat Peak E' Pal: 7.0 cm/sec PA pr(Accel): 37.0 mmHg E/E' lat: 6.9 E/e' average: 6.3 MV dec time: 0.22 sec SV(LVOT): 50.1 ml Reading Physician:10:38 AM
--- NOTE | 2021-08-24 | DI.US.S_ITS ---
PROCEDURE: US RETRO PERITONEAL LIMITED INDICATIONS: ATHEROSCLEROSIS. RULE OUT ABDOMINAL AORTIC ANERUYSM. TECHNIQUE: Real time scanning was performed of the aorta and iliac arteries, with image documentation. COMPARISON: [facility], , ABD AORTA ANEURYSM SCREENING, 10/09/2013, 8:37. FINDINGS: Aorta: Proximal aortic diameter measures 2.2 cm. Mid-aorta measures 2.0 cm. Distal aortic diameter is 2.5 cm. Iliac arteries: Right common iliac artery measures 1.8 cm. Left common iliac artery measures 1.7 cm. IMPRESSION: Mild ectasia of the abdominal aorta and iliac arteries without jeff aneurysm. Dictated by: Jono Lei M.D. on 08/24/2021 at 12:21 Approved by: Jono Lei M.D. on 08/24/2021 at 12:24
== END ==
PROVIDERS: PCP Student in an Organized Health Care Education/Training Program; Referring Provider Internal Medicine Cardiovascular Disease; Visit Provider Internal Medicine Cardiovascular Disease
DX: I70.90 Unspecified atherosclerosis (principal)
CPT/HCPCS: 76775; 93306

== ENCOUNTER → 2021-09-05 10:26 | Outpatient (CLI) | payer MEDICARE, OTHER, SELFPAY ==
--- NOTE | 2021-09-05 | DI.RAD.S_ITS ---
PROCEDURE: XR CHEST 2V INDICATIONS: Shortness of breath TECHNIQUE: 2 views of the chest were acquired. COMPARISON: [facility], , CHEST 1 VIEW, 12/06/2015, 11:20. FINDINGS: Surgical changes and devices: None. Lungs and pleura: Lungs are clear. No pleural effusions or pneumothorax. Mediastinum: Mediastinal contours are normal. Heart size is normal. Bones and chest wall: No suspicious bony abnormalities. Soft tissues appear unremarkable. IMPRESSION: No acute process. Dictated by: Randolph Cintron M.D. on 09/05/2021 at 13:52 Approved by: Randolph Cintron M.D. on 09/05/2021 at 13:53
== END ==
PROVIDERS: PCP Internal Medicine; Referring Provider Internal Medicine; Visit Provider Internal Medicine
DX: R06.02 Shortness of breath (principal); R06.2 Wheezing
CPT/HCPCS: 71046

== ENCOUNTER → 2022-05-10 10:06 | Outpatient (CLI) | payer MEDICARE, OTHER, SELFPAY ==
--- NOTE | 2022-05-10 10:11 | DI.RAD.S_ITS ---
PROCEDURE: XR CHEST 2V INDICATIONS: Dyspnea, possible pulm HTN, past tobacco, SY TECHNIQUE: 2 views of the chest were acquired. COMPARISON: [facility], CR, XR CHEST 2V, 09/05/2021, 10:23. FINDINGS: Surgical changes and devices: None. Lungs and pleura: Prominent central/perihilar vasculature. No airspace opacity. No pleural effusion or pneumothorax. Mediastinum: Mediastinal contours are normal. Heart size is normal. Bones and chest wall: No suspicious bony abnormalities. Soft tissues appear unremarkable. IMPRESSION: Prominent central/perihilar vasculature is nonspecific. This can be seen in the setting of pulmonary hypertension but also passive venous congestion. Dictated by: Wang Avila M.D. on 05/10/2022 at 10:53 Approved by: Wang Avila M.D. on 05/10/2022 at 10:56
[2022-05-10 10:52] LABS: Add Manual Diff / Slide Review NO; Basophils Absolute Auto 0 /uL (0-100); Basophils Percent Auto 0.8 % (0-2); Eosinophils Absolute Auto 300 /uL (0-450); Hematocrit 41.1 % (41-53); Lymphocytes Absolute Auto 1000 /uL (1100-4500); Lymphocytes Percent Auto 16.2 % (25-40); Mean Corpuscular Hemoglobin 31.2 PG (26-34); Mean Corpuscular Volume 91.7 fL (80-100); Monocytes Absolute Auto 600 /uL (0-900); Monocytes Percent Auto 10.2 % (3-14); Neutrophils Absolute Auto 4000 /uL (1500-7000); Neutrophils Percent Auto 67.8 % (50-75); Platelet Count 232 X10^3/uL (150-400); Red Blood Cell Count 4.48 X10^6/uL (4.5-5.9); Red Cell Distribution Width 13.5 % (11.6-14.8); White Blood Cell Count 5.9 X10^3/uL (4.5-11.0)
[2022-05-10 12:08] LABS: Alanine Aminotransferase 21 IU/L (<50); Albumin Globulin Ratio 1.4 (1.0-2.8); Alkaline Phosphatase 46 U/L (38-126); Aspartate Aminotransferase 30 IU/L (17-59); BUN Creatinine Ratio 15.2 (6-22); Bilirubin Total 0.6 mg/dL (0.2-1.3); Blood Urea Nitrogen 16 mg/dL (9-20); Calcium 8.6 mg/dL (8.4-10.2); Carbon Dioxide 30 mmol/L (22-32); Chloride 99 mmol/L (98-107); Estimated Glomerular Filt Rate > 60 mL/min (>60); Globulin 2.9 g/dL (1.7-4.1); Glucose 112 mg/dL (80-110); HEMOLYSIS < 15 (0-50); Potassium 5.1 mmol/L (3.4-5.1); Sodium 136 mmol/L (137-145); Total Protein 6.9 g/dL (6.3-8.2)
[2022-05-10 12:33] LABS: TSH w/ Reflex to FT4 0.96 uIU/mL (0.47-4.68)
== END ==
PROVIDERS: PCP Internal Medicine; Referring Provider Pediatrics; Visit Provider Pediatrics
DX: I70.90 Unspecified atherosclerosis (principal); R06.00 Dyspnea, unspecified
CPT/HCPCS: 36415; 71046; 80053; 84443; 85025

== ENCOUNTER → 2022-06-18 08:58 | Outpatient (CLI) | payer MEDICARE, OTHER, SELFPAY ==
--- NOTE | 2022-06-18 08:59 | DI.ECHO.S_ITS ---
[facility]---------+ [facility] +---------+ : : [address] : [place] : : : : [id number] : : : : Phone: [phone] +---------+ Echocardiogram Report + + :Name: CHRISTOPHER FUNES Study Date: 06/18/2022 Height: 67 in : :[facility] ReadingLocation: Weight: 150 lb : : Gender: Male BSA: 1.8 m2 : :: 1945 Age: 77 yrs BP: 147/94 mmHg: :Reason For Study: RICHARD LINN HTN : :Ordering Physician: LOGAN, : :JEANNINE Magallon Performed By: Adrienne Simon : :Referring: JEANNINE LUCIA : + + Interpretation Summary The ejection fraction is estimated to be 50-55%. Diastolic parameters suggest probable normal left ventricular diastolic function and normal filling pressures. The right ventricle is normal in size and function. There is mild tricuspid regurgitation. The right ventricular systolic pressure is estimated to be at least 26 mmHg based on an estimated right atrial pressure of 3 mm Hg. Compared to the prior study dated 08/24/2021, the ejection fraction now appears low normal. Procedure: A two-dimensional transthoracic echocardiogram with color flow and Doppler was performed. The study quality was technically adequate. Comparison is made with the echocardiogram of 08/24/2021. The patient was in sinus rhythm with heart rates between 69-80 bpm during the exam. Left Ventricle: The left ventricle is normal in size. The ejection fraction is estimated to be 50-55%. Diastolic parameters suggest probable normal left ventricular diastolic function and normal filling pressures. Right Ventricle: The right ventricle is normal in size and function. Atria: The left atrial size is normal. The right atrium is normal in size. There is no Doppler evidence for an interatrial shunt. Mitral Valve: The mitral valve is normal in structure and function. There is trace mitral regurgitation. Aortic Valve: The aortic valve is trileaflet. The aortic valve opens well. There is no aortic valve stenosis. No aortic regurgitation is present. Tricuspid Valve: There is mild tricuspid regurgitation. The right ventricular systolic pressure is estimated to be at least 26 mmHg based on an estimated right atrial pressure of 3 mm Hg. Pulmonic Valve: The pulmonic valve is not well visualized. There is no pulmonic valvular regurgitation. Great Vessels: The aortic root is normal size. The ascending aorta could not be visualized. The IVC is of normal diameter and collapses greater than 50% with a sniff. This suggests a low right atrial pressure of 3 mm Hg. Pericardium/ Pleura There is no pericardial effusion. There is no pleural effusion. MMode/2D Measurements & Calculations LVIDd: 4.8 cm LVOT diam: 2.1 cm LVIDs: 4.1 cm Ao root diam: 3.6 cm FS: 14.7 % Ao Arch Diam (Prox Trans): 3.4 cm EPSS: 1.4 cm IVSd: 1.1 cm LVPWd: 1.0 cm LV delaney. diameter/BSA (cm/m^2): 2.7 LV sys. diameter/BSA (cm/m^2): 2.3 LA A2 area: 20.9 cm2 RA long axis: 5.2 cm LA A4 area: 19.1 cm2 RA area: 18.5 cm2 LA length (vol): 5.6 cm RA vol: 56.2 ml LA vol: 60.3 ml RA : 31.4 ml/m2 LA vol index: 33.7 ml/m2 IVC diam: 1.3 cm RVD1 (basal): 3.7 cm RVD2 (mid): 2.6 cm TAPSE: 2.0 cm Doppler Measurements & Calculations Ao V2 max: 103.6 cm/sec LVOT Max Pal: 75.8 cm/sec Ao V2 mean: 73.2 cm/sec LV V1 max P.3 mmHg Ao max P.3 mmHg LV V1 VTI: 14.8 cm Ao mean P.4 mmHg LEX(I,D): 2.6 cm2 Ao V2 VTI: 20.6 cm LEX(V,D): 2.6 cm2 sev ratio: 0.72 LEX indexed to BSA (cm^2/m^2): 1.4 MV E max pal: 55.7 cm/sec TR max pal: 241.9 cm/sec MV A max pal: 82.9 cm/sec TR max P.4 mmHg MV E/A: 0.67 PA V2 max: 78.8 cm/sec Med Peak E' Pal: 6.5 cm/sec PA V2 mean: 51.0 cm/sec E/E' med: 8.5 PA mean P.2 mmHg Lat Peak E' Pal: 8.5 cm/sec PA Accel Time: 0.13 sec E/E' lat: 6.5 E/e' average: 7.5 MV dec time: 0.18 sec SVLVOT): 53.5 ml Reading Physician:12:59 PM
== END ==
PROVIDERS: PCP Internal Medicine; Referring Provider Pediatrics; Visit Provider Pediatrics
DX: I07.1 Rheumatic tricuspid insufficiency (principal); R06.00 Dyspnea, unspecified; I70.90 Unspecified atherosclerosis; G47.33 Obstructive sleep apnea (adult) (pediatric)
CPT/HCPCS: 93306

== ENCOUNTER → 2022-07-12 07:41 | Outpatient (CLI) | payer MEDICARE, OTHER, SELFPAY ==
--- NOTE | 2022-07-12 | DI.NM.S_ITS ---
PROCEDURE: NM AMILCAR PERF SPECT REST & STR Rest and exercise myocardial perfusion SPECT with gated imaging and ejection fraction RADIOPHARMACEUTICAL: 10.0 mCi Tc-99m sestamibi IV at rest and 25.9 mCi Tc-99m sestamibi IV at peak exercise. A [id number] was performed. INDICATIONS: Dyspnea TECHNIQUE: Radiopharmaceutical was injected at peak stress test, and also at rest. SPECT images were obtained. SPECT myocardial perfusion images were displayed in short axis, horizontal long axis, and vertical long axis views. Gated images were reviewed using [employer] software. COMPARISON: None. CARDIAC STRESS: A standard Arpan treadmill exercise tolerance test was performed by the patient under the supervision of an attending staff. The patient exercised for 5 minutes and 07 seconds; 7.0 METS; functional aerobic impairment (JULIA) is +11%. Hemodynamic data: There is normal blood pressure and heart rate response to exercise stress. Patient achieved 100% of maximum predicted heart rate at peak exercise. Maximum blood pressure 180/80. Symptoms: Patient denied chest pain during exercise. EKG: No diagnostic EKG changes of ischemia; occasional PVCs. FINDINGS: Raw data: There is good myocardial labeling by radiotracer. No significant motion artifacts. Adln-us-ptdvj ratio is 0.30 (normal is less than 0.38 for sestamibi tracer, and less than 0.50 for thallium tracer). Left ventricle function: Gated images demonstrate normal left ventricle wall thickening. Mild basal inferior hypokinesis. No transient ischemic dilation; TID is 0.85 (normal less than 1.3). The left ventricle resting end-diastolic volume is 112 mL. Left ventricle stress ejection fraction is 49%; normal values are above 45%. Myocardial perfusion: There is a large size, mild intensity fixed inferior wall defect that is better is stress than rest but does not completely resolve with prone imaging. IMPRESSION: There is a large size, mild intensity fixed inferior wall defect that is better in stress when compared to rest but does not completely resolve with prone imaging. The basal inferior wall also displays mild hypokinesis making this most consistent with inducible ischemia. No exercise-induced ECG changes. The patient complained of dyspnea on exertion but no chest pain. Slightly reduced exercise capacity. Dictated by: Maylin Hooks D.O. on 07/12/2022 at 16:29 Approved by: Maylin Hooks D.O. on 07/12/2022 at 16:40
[2022-07-12 08:40] LABS: COVID19 -Nasal RAPID Negative (Negative)
== END ==
PROVIDERS: PCP Internal Medicine; Referring Provider Internal Medicine Cardiovascular Disease; Visit Provider Internal Medicine Cardiovascular Disease
DX: R06.00 Dyspnea, unspecified (principal); Z20.822 Contact with and (suspected) exposure to COVID-19
CPT/HCPCS: 78452; 87635; 93017; A9502

== ENCOUNTER → 2022-08-15 07:54 | Outpatient (CLI) | payer MEDICARE, OTHER, SELFPAY ==
[2022-08-15 10:39] LABS: Cholesterol 128 mg/dL (140-199); HDL Cholesterol 47 mg/dL (40-60); LDL Cholesterol Calculated 46 mg/dL (<100); Triglycerides 173 mg/dL (35-150)
[2022-08-15 11:07] LABS: Prostate Specific Antigen 0.181 ng/mL (0.10-4.00)
== END ==
PROVIDERS: PCP Internal Medicine; Referring Provider Internal Medicine; Visit Provider Internal Medicine
DX: E78.2 Mixed hyperlipidemia (principal); N40.1 Benign prostatic hyperplasia with lower urinary tract symptoms
CPT/HCPCS: 36415; 80061; 84153

== ENCOUNTER → 2022-10-15 11:36 | Outpatient (CLI) | payer MEDICARE, OTHER, SELFPAY ==
--- NOTE | 2022-10-15 11:37 | DI.RAD.S_ITS ---
PROCEDURE: XR LUMBAR SPINE 2-3V INDICATIONS: low back pain TECHNIQUE: 3 views of the lumbar spine were acquired. COMPARISON: [facility], , XR LUMBAR SPINE MIN 4V, 11/18/2018, 10:38. FINDINGS: Bones: 5 [id number] vertebrae are present. There is anterolisthesis of L3 on L4, trace retrolisthesis of L4 on L5. Multilevel degenerative disc space narrowing is present moderate to severe and most notable at L4-5 and L5-S1. Moderate to severe foraminal narrowing is also present L4-5 and L5-S1.. No vertebral body compression fractures. No suspicious bony lesions. Soft tissues: Overlying bowel gas pattern is normal. No suspicious soft tissue calcifications. IMPRESSION: Multilevel degenerative changes most severe at L5-S1. Dictated by: Taryn Aguilar M.D. on 10/15/2022 at 16:04 Approved by: Taryn Aguilar M.D. on 10/15/2022 at 16:05
== END ==
PROVIDERS: PCP Internal Medicine; Referring Provider Internal Medicine; Visit Provider Internal Medicine
DX: M47.817 Spondylosis without myelopathy or radiculopathy, lumbosacral region (principal); M47.816 Spondylosis without myelopathy or radiculopathy, lumbar region; M54.50 Low back pain, unspecified; G89.29 Other chronic pain
CPT/HCPCS: 72100

== ENCOUNTER → 2022-11-28 11:31 | Outpatient (CLI) | payer MEDICARE, OTHER, SELFPAY ==
[2022-11-28 13:34] LABS: COVID19 -Nasal RAPID Negative (Negative)
== END ==
PROVIDERS: Family Provider Internal Medicine; PCP Internal Medicine; Visit Provider Surgery
DX: Z20.822 Contact with and (suspected) exposure to COVID-19 (principal); Z01.812 Encounter for preprocedural laboratory examination
CPT/HCPCS: 87635; C9803

== ENCOUNTER 2022-11-29 13:17 | Day surgery (SDC) | payer MEDICARE, OTHER, SELFPAY ==
--- NOTE | 2022-11-29 | PATH_ITS ---
[facility] Accession Number: [id number] . 01 Material submitted: . PART A: cecum - CECAL POLYP PART B: colon - ASCENDING COLON POLYP PART C: colon - TRANSVERSE COLON POLYP PART D: rectum - RECTAL POLYP . 01 Diagnosis: A. Cecal Polyp, Polypectomy: Tubular adenoma. . B. Ascending Colon Polyp, Polypectomy: Tubular adenoma. . C. Transverse Colon Polyp, Polypectomy: Tubular adenoma. . D. Rectal Polyp, Polypectomy: Tubular adenoma. [facility] 12/04/2022 1012 Local . 01 Electronically signed: . Jill Arguelles MD, Pathologist NPI- [id number] . 01 Gross description: . Part A: CECAL POLYP: Received in formalin are 3 fragment(s) of coyle, soft tissue measuring 0.5 x 0.5 x 0.1 cm to 0.3 x 0.3 x 0.1 cm submitted entirely in 1 cassette(s) Part B: ASCENDING COLON POLYP: Received in formalin are multiple fragment(s) of coyle, soft tissue measuring 1.5 x 1.1 x 0.1 cm in aggregate submitted entirely in 1 cassette(s) Part C: TRANSVERSE COLOMN POLYP: Received in formalin are 2 fragment(s) of coyle, soft tissue measuring 0.3 x 0.2 x 0.2 cm to 0.2 x 0.2 x 0.1 cm submitted entirely in 1 cassette(s) Part D: RECTAL POLYP: Received in formalin is 1 fragment(s) of coyle, soft tissue measuring 0.4 x 0.3 x 0.3 cm submitted entirely in 1 cassette(s) /CPE 11/30/2022 0557 Local . 01 Pathologist provided ICD-10: D12.6 . 01 CPT . 207959, 636151, [id number], [id number] Specimen Comment: A courtesy copy of this report has been sent to [phone] Performed at: 01 [facility] [address] [place] [address] [id number] MD Travis Das MD Phone: [phone]
[2022-11-29 13:50] VITALS: BP 164/96; PULSE 85; RESP 12; TEMP 37.1; O2SAT 94; BMI 23.5
[2022-11-29] MEDS: LACTATED RINGERS 1,000 ML 42 ML IV (13:55)
--- NOTE | 2022-11-29 14:18 | PM.HP.1 ---
History of Present Illness History of Present Illness Date Patient Seen: 11/29/22 Time Patient Seen: 14:18 Chief complaint: SDC Narrative: Chris is a 77-year-old man who is here for colonoscopy. His last was in 2010. He believes no polyps were found and he has no known family history of colon cancer. Patient History Medical History (Updated 11/29/22 @ 14:19 by Juan Manuel Schneider MD) Advanced directives, counseling/discussion Asthma, mild intermittent Chicken pox (~195) Chronic diastolic CHF (congestive heart failure), NYHA class 1 Chronic low back pain Hernia (2007) Herniated nucleus pulposus, L3-4 left Herpes (Unknown) Measles Medicare annual wellness visit, initial Mixed hyperlipidemia Obstructive sleep apnea syndrome Primary insomnia (07/29/17) Spinal stenosis (09/2012) Surgical History Anesthesia H/O hernia repair (2009) History of tonsillectomy Family & Social History Family History Father Cancer Mother Diabetes mellitus Social History: household members spouse Tobacco & Substance use: Smoking Status Former smoker alcohol intake current Substance Use Type does not use Meds Home Medications and Allergies Home Medications Medication Instructions Recorded Confirmed Type [POTASSIUM] ##0 05/17/11 10/15/22 History losartan 50 mg tablet 50 mg PO QDAY #90 tabs 06/23/19 11/29/22 Rx carvedilol 12.5 mg tablet (Coreg) 12.5 mg PO BID #180 tabs 09/11/19 11/29/22 Rx cholecalciferol (vitamin D3) PO DAILY 05/04/20 10/15/22 History Oral Appliance for moderate SY #1 ea 06/29/21 10/15/22 Rx rosuvastatin 20 mg tablet 20 mg PO DAILY 09/20/21 11/29/22 History finasteride 5 mg tablet 5 mg PO 05/08/22 10/15/22 History gabapentin 300 mg capsule See Rx Instructions .Route 06/13/22 10/15/22 Rx .COMPLEX #180 caps albuterol sulfate 90 mcg/actuation 1 puff inhalation Q6H PRN 08/13/22 11/29/22 History aerosol inhaler (Ventolin HFA) shortness of breath or wheezing ascorbic acid (vitamin C) 500 mg 500 mg PO DAILY 08/13/22 10/15/22 History tablet calcium carbonate 500 mg calcium 500 mg PO 4XW 08/13/22 10/15/22 History (1,250 mg) tablet multivitamin 1 tab PO DAILY 08/13/22 10/15/22 History vitamin B complex 1 tab PO DAILY 08/13/22 10/15/22 History vitamin E [Vitamin E-400] 1 tab PO DAILY 08/13/22 10/15/22 History trazodone 100 mg tablet 200 mg PO BEDTIME PRN insomnia 08/29/22 11/29/22 Rx #180 tabs zolpidem 10 mg tablet 10 mg PO BEDTIME PRN insomnia #30 10/15/22 11/29/22 Rx tabs sodium sul 1.479 gram-potas ch See Rx Instructions PO PER PKG DIR 11/14/22 Rx 0.188 gram-magnes sul 0.225 gram #24 tabs tablet (Sutab) aspirin See Rx Instructions .Route .COMPLEX 11/29/22 11/29/22 History Allergies Allergy/AdvReac Type Severity Reaction Status Date / Time Sulfa (Sulfonamide Allergy Intermediate HIVES Verified 10/15/22 07:40 Antibiotics) Exam Vital Signs (past 8 hours): - 11/29/22 13:50 Temperature 98.7 F Pulse Rate 85 Respiratory Rate 12 Blood Pressure 164/96 H Pulse Oximetry 94 Oxygen Delivery Method Room Air Oxygen Delivery Method Room Air Const General: No acute distress Assessment & Plan Assessment and plan (1) Colon cancer screening: Status: Acute Plan 77-year-old man here for colonoscopy for colon cancer screening. We reviewed the risks and benefits of the procedure and he would like to proceed. Time Spent With Patient Critical Care time: I spent a total of [] minutes of critical care time on this patient's care today; this time is exclusive of procedural time.
--- NOTE | 2022-11-29 15:03 | PM.OP.COLON ---
Operative Date/Time/Diagnoses Date of procedure: 11/29/22 Time of procedure: 15:03 Pre-op diagnosis: Colon cancer screening Post-op diagnosis: same Procedure & Clinicians Study performed: Colonoscopy Same procedure as scheduled: Yes Surgeon: Juan Manuel Schneider Procedure Notes Procedure in detail: Surgeon: Juan Manuel Schneider MD Anesthesia: Ismael Garcia D.O. Procedure: The patient was brought to the endoscopy suite, placed in left lateral decubitus position. The patient was connected to monitoring devices. A time-out was performed. Sedation was administered. Once the patient was adequately sedated, a digital rectal exam was performed and was normal. The scope was then inserted and advanced to the cecum where the appendiceal orifice was identified and photographed. The terminal ileum was intubated and no abnormalities were seen. The scope was then slowly withdrawn over greater than 6 minutes. The mucosa was thoroughly inspected. There was a 5 mm polyp adjacent to the appendiceal orifice which was removed with a cold snare. There was a 9 mm flat polyp in the ascending colon removed with a cold snare. There was a 7 mm flat polyp in the distal transverse colon removed with cold snare. There was a 3 mm polyp just above the dentate line in the rectum removed with a cold snare. The scope was retroflexed in the rectum. No other abnormalities were noted. The scope was straightened and removed. The patient was awakened and brought to recovery. Scope withdrawal time: 19 minutes Sedation time: 26 minutes EBL: 5 mL Findings: 5 mm polyp near the appendiceal orifice, 9 mm polyp in the ascending colon, 7 mm polyp in the distal transverse colon and 3 mm polyp in the distal rectum Post-procedure Disposition: PACU
[2022-11-29 15:04] VITALS: BP 119/73; PULSE 89; RESP 18; TEMP 36.7; O2SAT 98
[2022-11-29 15:09] VITALS: BP 118/80; PULSE 85; RESP 13; TEMP 36.9; O2SAT 95
[2022-11-29 15:16] VITALS: BP 134/85; PULSE 75; RESP 15; TEMP 36.6; O2SAT 96
[2022-11-29 15:29] VITALS: BP 145/91; PULSE 75; RESP 20; TEMP 36.7; O2SAT 98
== END 2022-11-29 15:43 | disposition home or self-care (01) ==
PROVIDERS: Family Provider Internal Medicine; PCP Internal Medicine; Referring Provider Surgery; Visit Provider Surgery
PROC: 0DJD8ZZ Inspection of Lower Intestinal Tract, Via Natural or Artificial Opening Endoscopic (ICD-10-PCS; CPT 45378; principal; 2022-11-29 14:15)
DX: Z12.11 Encounter for screening for malignant neoplasm of colon (principal); D12.0 Benign neoplasm of cecum; D12.2 Benign neoplasm of ascending colon; D12.3 Benign neoplasm of transverse colon; D12.8 Benign neoplasm of rectum
CPT/HCPCS: 45385; J2704; J3010

== ENCOUNTER 2023-01-09 10:30 | Outpatient (RCR) | payer MEDICARE, OTHER, SELFPAY ==
--- NOTE | 2022-12-19 11:15 | PT.OIE ---
Current Diagnoses Other chronic pain (12/19/22) Radiculopathy, lumbosacral region (12/19/22) Low back pain, unspecified (12/19/22) Past Medical History (Last Reviewed 11/29/22 @ 13:43 by Adrienne Camargo, COY) Advanced directives, counseling/discussion Asthma, mild intermittent Chicken pox (~1952) Chronic diastolic CHF (congestive heart failure), NYHA class 1 Chronic low back pain Hernia (2007) Herniated nucleus pulposus, L3-4 left Herpes (Unknown) Measles Medicare annual wellness visit, initial Mixed hyperlipidemia Obstructive sleep apnea syndrome Primary insomnia (07/29/17) Spinal stenosis (09/2012) Past Surgical History (Last Reviewed 11/29/22 @ 13:43 by Adrienne Camargo, COY) Anesthesia H/O hernia repair (2009) History of tonsillectomy Visit Care Team Role Provider Type Curtis South MD Attending Provider Physician Family Provider Primary Care Provider Referring Provider Specialty: Internal Medicine Address: [address] [place] [address] Email: [email or web address] Physical Therapy Initial Evaluation PT-OP-A Visit Information Start: 12/19/22 17:31 Freq: Status: Active Protocol: Document 12/19/22 10:40 DCW (Rec: 12/19/22 17:57 DCW [id number]) Out-Patient Physical Therapy Visit Information Visit Information Visit Type Initial Evaluation Visit Start Time 10:40 Visit Stop Time 11:15 Total Visit Minutes 35 Visit Number 1 Number of IMAGING TECHNICIAN Visits 0 Evaluation Information Evaluation Date 12/19/22 PT-OP-B Current Condition Start: 12/19/22 17:31 Freq: Status: Active Protocol: Document 12/19/22 10:40 DCW (Rec: 12/19/22 17:57 DCW [id number]) Current Condition History of Current Condition Onset Date Multi-year history Current Complaints bilateral pain in lateral low back History of Current Condition Pt is a 77 year old male presenting with a multi-year history of low back pain. Pt reports it has bothered him for years, but has worsened over the past 12 months. Previously had pain for low back pain, he believes around 10 year ago, and still fairly consistently performed his HEP , including heel raises, standing hip abduction/ extension, hamstring stretching , quad sets, single KtC, and LTR. Performs these in the AM, which helps loosen him up when he wakes up sore, but otherwise he finds that after this initially makes him feel better, he still tightens up throughout the day. Feels the worst getting up out of a chair, bending over and then straightening back up, or performing much lifting. Denies pain along his spine, notes it is more lateral, above his PSIS bilaterally. Prior Treatments and Tests Lumbar x-ray: IMPRESSION: Multilevel degenerative changes most severe at L5-S1. per Taryn Aguilar M.D. on PT-OP-C Subjective Start: 12/19/22 17:31 Freq: Status: Active Protocol: Document 12/19/22 10:40 DCW (Rec: 12/19/22 17:57 DCW [id number]) OP-PT Subjective Patient Comments Patient Comments They said my x-ray showed a lot of degeneration, so that's probably what's going on. OP-PT Pain Assessment Pain Assessment Grid Paper Pain Assessment Grid Completed Yes Location Right Lower Back Intensity 4 Scale Used Numeric (0 - 10) Left Lower Back Intensity 2 Scale Used Numeric (0 - 10) PT-OP-F Manual Assessment Start: 12/19/22 17:31 Freq: Status: Active Protocol: Document 12/19/22 10:40 DCW (Rec: 12/20/22 09:40 DCW [id number]) Manual Assessments Soft Tissue Assessment Soft Tissue Mobility Assessment Increased tone and tenderness to palpation 3/4:wincing and withdraw bilaterally along lateral posterior trunk, in area of posterior obliques, superior to posterior iliac crest. Joint Mobility Assessment Joint Mobility Assessment No complaints of discomfort, minimal hypomobility with mobilizations of lumbar vertebrae PT-OP-K Range of Motion Start: 12/19/22 17:31 Freq: Status: Active Protocol: Document 12/19/22 10:40 DCW (Rec: 12/20/22 09:40 DCW [id number]) Lumbar Spine Range of Motion Lumbar Spine Active Degrees Testing Position Standing Flexion 70 Extension 20 Lateral Flexion Left 57 Lateral Flexion Right 53 ROM Limitations Pain Comments Lateral flexion measured in cm from fingertips to floor. Pt complains of ipsilateral pain with right lateral flexion PT-OP-L Special Tests Start: 12/19/22 17:31 Freq: Status: Active Protocol: Document 12/19/22 10:40 DCW (Rec: 12/20/22 09:40 DCW [id number]) Special Tests Lumbar Spine Special Tests Lateral SI compression Test Results Negative Vertical Spine Loading Test Results Negative Otis Test Results Negative Straight Leg Raise Test Results Negative Standing Flexion Test Results Negative Slump Test Results Negative Manual Traction Test Results Negative Compression Test Results Negative A-P Shearing Test Results Negative PT-OP-M Strength Start: 12/19/22 17:31 Freq: Status: Active Protocol: Document 12/19/22 10:40 DCW (Rec: 12/20/22 09:40 DCW [id number]) Trunk Strength Trunk Manual Muscle Testing Core Stabilization Difficulty performing PPT and TrA contraction, required verbal and tactile cues PT-OP-Q Treatments Start: 12/19/22 17:31 Freq: Status: Active Protocol: Document 12/19/22 10:40 DCW (Rec: 12/19/22 17:57 DCW [id number]) Therapeutic Exercises Supine Exercises PPT /c TrA Supine Exercise Name PPT /c TrA contraction Piriformis stretch Supine Exercise Name Knee to opposite shoulder Side bilateral PT-OP-T Assessment and Plan Start: 12/19/22 17:31 Freq: Status: Active Protocol: Document 12/19/22 10:40 DCW (Rec: 12/20/22 15:06 DCW [id number]) Physical Therapy Assessment Rehab Potential Rehabilitation Potential Good Evaluation Complexity Number of Personal Factors/Comorbidities 1-2 Number of Body Systems Impaired 1-2 Clinical Presentation at Evaluation Evolving Impairments Impairments Activity Tolerance,Functional Activities,Functional Mobility ,Pain,ROM,Soft Tissue Mobility ,Strength,Tone Goals Two Impairment Pt experiences increased low back pain when standing up following an extended period of time sitting, or straightening up after bending forward. Deputy Treasurer Goal (LTG) Pt to report no increased pain upon first standing up over the course of four straight days in order to improve ability to perform daily functional mobility. LTG Duration 02/16/23 One Impairment Pt does not have an appropriate home exercise program Short Term Goal (STG) Pt to be independent and compliant with an appropriate HEP STG Duration 01/19/23 Assessment Summary Assessment Pt presents with complaints of ongoing, worsening pain along lateral lumbar musculature bilaterally, mainly in area of posterior abdominal obliques. Pt pain and discomfort largely unable to be replicated in any way with lumbar special testing, did demonstrate some moderate tenderness to palpation and mild-moderate tone in area of complaints, additionally pt had initial difficulty with TrA contraction and bracing activities. Pt will likely benefit from core strengthening, lumbar stretching and stability. Pt has been very compliant over the past ~10 years with a prior HEP for low back pain, but have already determined that he is not holding stretches any longer than ~5 seconds, will likely need to review and revise HEP. Additionally, pt lumbar x-ray shows significant lumbar DJD, especially at L5-S1, may require ortho referral is he does not progress as expected. Physical Therapy Plan Frequency and Duration Frequency of Treatment 2x/Week Plan of Care Start Date 12/19/22 Plan of Care End Date 02/16/23 Therapeutic Interventions Therapeutic Interventions Balance Training,Home Exercise Program,Joint Mobilizations, Manual Therapy,Neuromuscular Re-education,Patient/Caregiver Education,Self-Care/Home Management,Soft Tissue Mobilization,Therapeutic Activities,Therapeutic Exercises Modalities Cold Pack/Ice Massage,Hot Packs,Ultrasound Next Visit Focus/Plan Next Note Type Treatment Note Next Visit Plan Core strengthening, lumbar stretching/mobility, STM
--- NOTE | 2022-12-19 11:15 | PT.OPPOC ---
Physical, Occupational & Speech Therapy At [facility] Current Diagnoses Other chronic pain (12/19/22) Radiculopathy, lumbosacral region (12/19/22) Low back pain, unspecified (12/19/22) Visit Care Team Role Provider Type Curtis South MD Attending Provider Physician Family Provider Primary Care Provider Referring Provider Specialty: Internal Medicine Address: [address] [place] [address], [facility] Email: [email or web address] Plan Of Care PT-OP-T Assessment and Plan Start: 12/19/22 17:31 Freq: Status: Active Protocol: Document 12/19/22 10:40 DCW (Rec: 12/20/22 15:06 DCW [id number]) Physical Therapy Assessment Rehab Potential Rehabilitation Potential Good Evaluation Complexity Number of Personal Factors/Comorbidities 1-2 Number of Body Systems Impaired 1-2 Clinical Presentation at Evaluation Evolving Impairments Impairments Activity Tolerance,Functional Activities,Functional Mobility ,Pain,ROM,Soft Tissue Mobility ,Strength,Tone Goals Two Impairment Pt experiences increased low back pain when standing up following an extended period of time sitting, or straightening up after bending foward. Wallpaper Cleaner Goal (LTG) Pt to report no increased pain upon first standing up over the course of four straight days in order to improve ability to perform daily functional mobility. LTG Duration 02/16/23 One Impairment Pt does not have an appropriate home exercise program Short Term Goal (STG) Pt to be independent and compliant with an appropriate HEP STG Duration 01/19/23 Assessment Summary Assessment Pt presents with complaints of ongoing, worsening pain along lateral lumbar musculature bilaterally, mainly in area of posterior abdominal obliques. Pt pain and discomfort largely unable to be replicated in any way with lumbar special testing, did demonstrate some moderate tenderness to palpation and mild-moderate tone in area of complaints, additionally pt had initial difficulty with TrA contraction and bracing activities. Pt will likely benefit from core strengthening, lumbar stretching and stability. Pt has been very compliant over the past ~10 years with a prior HEP for low back pain, but have already determined that he is not holding stretches any longer than ~5 seconds, will likely need to review and revise HEP. Additionally, pt lumbar x-ray shows significant lumbar DJD, especially at L5-S1, may require ortho referral is he does not progress as expected. Physical Therapy Plan Frequency and Duration Frequency of Treatment 2x/Week Plan of Care Start Date 12/19/22 Plan of Care End Date 02/16/23 Therapeutic Interventions Therapeutic Interventions Balance Training,Home Exercise Program,Joint Mobilizations, Manual Therapy,Neuromuscular Re-education,Patient/Caregiver Education,Self-Care/Home Management,Soft Tissue Mobilization,Therapeutic Activities,Therapeutic Exercises Modalities Cold Pack/Ice Massage,Hot Packs,Ultrasound Next Visit Focus/Plan Next Note Type Treatment Note Next Visit Plan Core strengthening, lumbar stretching/mobility, STM Plan of Care Dates Plan of Care Start Date 12/19/22 Plan of Care End Date 02/16/23 Electronically Signed by: Marco Linder, PT 12/20/22 9044 If you are in agreement with this Plan of Care, please return a signed and dated copy. I have reviewed this Plan of Care and certify that the skilled therapy services above are required to meet the patient?s needs. Physician Signature Date Printed Name and Credentials Clinical Instructor Signature Printed Name and Credentials
--- NOTE | 2022-12-19 11:15 | PT.OPPOC ---
Physical, Occupational & Speech Therapy At [facility] Current Diagnoses Other chronic pain (12/19/22) Radiculopathy, lumbosacral region (12/19/22) Low back pain, unspecified (12/19/22) Visit Care Team Role Provider Type Curtis South MD Attending Provider Physician Family Provider Primary Care Provider Referring Provider Specialty: Internal Medicine Address: [address] [place] [address], [facility] Email: [email or web address] Plan Of Care PT-OP-T Assessment and Plan Start: 12/19/22 17:31 Freq: Status: Active Protocol: Document 12/19/22 10:40 DCW (Rec: 12/20/22 15:06 DCW [id number]) Physical Therapy Assessment Rehab Potential Rehabilitation Potential Good Evaluation Complexity Number of Personal Factors/Comorbidities 1-2 Number of Body Systems Impaired 1-2 Clinical Presentation at Evaluation Evolving Impairments Impairments Activity Tolerance,Functional Activities,Functional Mobility ,Pain,ROM,Soft Tissue Mobility ,Strength,Tone Goals Two Impairment Pt experiences increased low back pain when standing up following an extended period of time sitting, or straightening up after bending forward. Senior Care Goal (LTG) Pt to report no increased pain upon first standing up over the course of four straight days in order to improve ability to perform daily functional mobility. LTG Duration 02/16/23 One Impairment Pt does not have an appropriate home exercise program Short Term Goal (STG) Pt to be independent and compliant with an appropriate HEP STG Duration 01/19/23 Assessment Summary Assessment Pt presents with complaints of ongoing, worsening pain along lateral lumbar musculature bilaterally, mainly in area of posterior abdominal obliques. Pt pain and discomfort largely unable to be replicated in any way with lumbar special testing, did demonstrate some moderate tenderness to palpation and mild-moderate tone in area of complaints, additionally pt had initial difficulty with TrA contraction and bracing activities. Pt will likely benefit from core strengthening, lumbar stretching and stability. Pt has been very compliant over the past ~10 years with a prior HEP for low back pain, but have already determined that he is not holding stretches any longer than ~5 seconds, will likely need to review and revise HEP. Additionally, pt lumbar x-ray shows significant lumbar DJD, especially at L5-S1, may require ortho referral is he does not progress as expected. Physical Therapy Plan Frequency and Duration Frequency of Treatment 2x/Week Plan of Care Start Date 12/19/22 Plan of Care End Date 02/16/23 Therapeutic Interventions Therapeutic Interventions Balance Training,Home Exercise Program,Joint Mobilizations, Manual Therapy,Neuromuscular Re-education,Patient/Caregiver Education,Self-Care/Home Management,Soft Tissue Mobilization,Therapeutic Activities,Therapeutic Exercises Modalities Cold Pack/Ice Massage,Hot Packs,Ultrasound Next Visit Focus/Plan Next Note Type Treatment Note Next Visit Plan Core strengthening, lumbar stretching/mobility, STM Plan of Care Dates Plan of Care Start Date 12/19/22 Plan of Care End Date 02/16/23 Electronically Signed by: Marco Linder, PT 12/20/22 8726 If you are in agreement with this Plan of Care, please return a signed and dated copy. I have reviewed this Plan of Care and certify that the skilled therapy services above are required to meet the patient?s needs. Physician Signature Date Printed Name and Credentials Clinical Instructor Signature Printed Name and Credentials
--- NOTE | 2022-12-21 09:46 | PT.OTN ---
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 Pt reports it has bothered him for years, but has worsened over the past 12 months. Previously had pain for low back pain, he believes around 10 year ago, and still fairly consistently performed his HEP , including heel raises, standing hip abduction/ extension, hamstring stretchin , quad sets, single KtC, and LTR. Performs these in the AM, which helps loosen him up when he wakes up sore, but otherwise he finds that after this initially makes him feel better, he still tightens up throughout the day. Feels the worst getting up out of a chair, bending over and then straightening back up, or performing much lifting. Denies pain along his spine, notes it is more lateral, above his PSIS bilaterally. Prior Treatments and Tests Lumbar x-ray: IMPRESSION: Multilevel degenerative changes most severe at L5-S1. per Taryn Aguilar M.D. on PT-OP-C Subjective Start: 12/19/22 17:31 Freq: Status: Active Protocol: Document 12/21/22 09:00 DCW (Rec: 12/21/22 09:46 DCW [id number]) OP-PT Subjective Patient Comments Patient Comments Pt reports his back is pretty good today. PT-OP-F Manual Assessment Start: 12/19/22 17:31 Freq: Status: Active Protocol: Document 12/19/22 10:40 DCW (Rec: 12/20/22 09:40 DCW [id number]) Manual Assessments Soft Tissue Assessment Soft Tissue Mobility Assessment Increased tone and tenderness to palpation 3/4:wincing and withdraw bilaterally along lateral posterior trunk, in area of posterior obliques, superior to posterior iliac crest. Joint Mobility Assessment Joint Mobility Assessment No complaints of discomfort, minimal hypomobility with mobilizations of lumbar vertebrae PT-OP-K Range of Motion Start: 12/19/22 17:31 Freq: Status: Active Protocol: Document 12/19/22 10:40 DCW (Rec: 12/20/22 09:40 DCW [id number]) Lumbar Spine Range of Motion Lumbar Spine Active Degrees Testing Position Standing Flexion 70 Extension 20 Lateral Flexion Left 57 Lateral Flexion Right 53 ROM Limitations Pain Comments Lateral flexion measured in cm from fingertips to floor. Pt complains of ipsilateral pain with right lateral flexion PT-OP-L Special Tests Start: 12/19/22 17:31 Freq: Status: Active Protocol: Document 12/19/22 10:40 DCW (Rec: 12/20/22 09:40 DCW [id number]) Special Tests Lumbar Spine Special Tests Lateral SI compression Test Results Negative Vertical Spine Loading Test Results Negative Otis Test Results Negative Straight Leg Raise Test Results Negative Standing Flexion Test Results Negative Slump Test Results Negative Manual Traction Test Results Negative Compression Test Results Negative A-P Shearing Test Results Negative PT-OP-M Strength Start: 12/19/22 17:31 Freq: Status: Active Protocol: Document 12/19/22 10:40 DCW (Rec: 12/20/22 09:40 DCW [id number]) Trunk Strength Trunk Manual Muscle Testing Core Stabilization Difficulty performing PPT and TrA contraction, required verbal and tactile cues PT-OP-Q Treatments Start: 12/19/22 17:31 Freq: Status: Active Protocol: Document 12/21/22 09:00 DCW (Rec: 12/21/22 09:46 DCW [id number]) Cardio Equipment Recumbent Elliptical (Biodex) Duration (Minutes) 5 Resistance 4 Seat Position 8 Gym Equipment Therapeutic Ball Bridging Exercise Details Bridging /c feet on ball Ball Size/Color Red - 55 cm Body Position Supine Pelvic Tilts Exercise Details Pelvic tilts/circles Ball Size/Color Green - 65 cm Body Position Sitting Therapeutic Exercises Supine Exercises PPT /c TrA Supine Exercise Name PPT /c TrA contraction Standing Exercises Hip hike Standing Exercise Name Hip hike Side bilateral Equipment Used 6 step Pallof Press Standing Exercise Name Pallof press Side bilateral Resistance Lv 3 Manual Therapy Treatment Soft Tissue Mobilization Low back Body Location posterior obliques, QL, Lumbar paraspinals Mobilization Type Strumming,Sustained Pressure Body Position Sidelying PT-OP-T Assessment and Plan Start: 12/19/22 17:31 Freq: Status: Active Protocol: Document 12/21/22 09:00 DCW (Rec: 12/21/22 09:46 DCW [id number]) Physical Therapy Assessment Impairments Impairments Activity Tolerance,Functional Activities,Functional Mobility ,Pain,ROM,Soft Tissue Mobility ,Strength,Tone Goals Two Impairment Pt experiences increased low back pain when standing up following an extended period of time sitting, or straightening up after bending foward. Long-Term Goal (LTG) Pt to report no increased pain upon first standing up over the course of four straight days in order to improve ability to perform daily functional mobility. LTG Duration 02/16/23 One Impairment Pt does not have an appropriate home exercise program Short Term Goal (STG) Pt to be independent and compliant with an appropriate HEP STG Duration 01/19/23 Assessment Summary Assessment Pt responded very well to treatment today, very motivated with compliance for HEP, reviewed some HEp per pt request to reinforce understanding. Physical Therapy Plan Frequency and Duration Frequency of Treatment 2x/Week Plan of Care Start Date 12/19/22 Plan of Care End Date 02/16/23 Therapeutic Interventions Therapeutic Interventions Balance Training,Home Exercise Program,Joint Mobilizations, Manual Therapy,Neuromuscular Re-education,Patient/Caregiver Education,Self-Care/Home Management,Soft Tissue Mobilization,Therapeutic Activities,Therapeutic Exercises Modalities Cold Pack/Ice Massage,Hot Packs,Ultrasound Next Visit Focus/Plan Next Note Type Treatment Note Next Visit Plan Core strengthening, lumbar stretching/mobility, STM
--- NOTE | 2022-12-24 11:12 | PT.OTN ---
Current Diagnoses Other chronic pain (12/24/22) Radiculopathy, lumbosacral region (12/24/22) Low back pain, unspecified (12/24/22) Physical Therapy Treatment Note PT-OP-A Visit Information Start: 12/19/22 17:31 Freq: Status: Active Protocol: Document 12/24/22 10:30 DCW (Rec: 12/24/22 11:12 DCW [id number]) Out-Patient Physical Therapy Visit Information Visit Information Visit Type Treatment Note Visit Start Time 10:30 Visit Stop Time 11:15 Total Visit Minutes 45 Visit Number 3 Number of SUPERVISOR DIALS Visits 0 Evaluation Information Evaluation Date 12/19/22 PT-OP-B Current Condition Start: 12/19/22 17:31 Freq: Status: Active Protocol: Document 12/19/22 10:40 DCW (Rec: 12/19/22 17:57 DCW [id number]) Current Condition History of Current Condition Onset Date Multi-year history Current Complaints bilateral pain in lateral low back History of Current Condition Pt is a 77 year old male presenting with a multi-year history of low back pain. Pt reports it has bothered him for years, but has worsened over the past 12 months. Previously had pain for low back pain, he believes around 10 year ago, and still fairly consistently performed his HEP , including heel raises, standing hip abduction/ extension, hamstring stretchin , quad sets, single KtC, and LTR. Performs these in the AM, which helps loosen him up when he wakes up sore, but otherwise he finds that after this initially makes him feel better, he still tightens up throughout the day. Feels the worst getting up out of a chair, bending over and then straightening back up, or performing much lifting. Denies pain along his spine, notes it is more lateral, above his PSIS bilaterally. Prior Treatments and Tests Lumbar x-ray: IMPRESSION: Multilevel degenerative changes most severe at L5-S1. per Taryn Aguilar M.D. on PT-OP-C Subjective Start: 12/19/22 17:31 Freq: Status: Active Protocol: Document 12/24/22 10:30 DCW (Rec: 12/24/22 11:12 DCW [id number]) OP-PT Subjective Patient Comments Patient Comments Pt feeling fairly good today. PT-OP-F Manual Assessment Start: 12/19/22 17:31 Freq: Status: Active Protocol: Document 12/19/22 10:40 DCW (Rec: 12/20/22 09:40 DCW [id number]) Manual Assessments Soft Tissue Assessment Soft Tissue Mobility Assessment Increased tone and tenderness to palpation 3/4:wincing and withdraw bilaterally along lateral posterior trunk, in area of posterior obliques, superior to posterior iliac crest. Joint Mobility Assessment Joint Mobility Assessment No complaints of discomfort, minimal hypomobility with mobilizations of lumbar vertebrae PT-OP-K Range of Motion Start: 12/19/22 17:31 Freq: Status: Active Protocol: Document 12/19/22 10:40 DCW (Rec: 12/20/22 09:40 DCW [id number]) Lumbar Spine Range of Motion Lumbar Spine Active Degrees Testing Position Standing Flexion 70 Extension 20 Lateral Flexion Left 57 Lateral Flexion Right 53 ROM Limitations Pain Comments Lateral flexion measured in cm from fingertips to floor. Pt complains of ipsilateral pain with right lateral flexion PT-OP-L Special Tests Start: 12/19/22 17:31 Freq: Status: Active Protocol: Document 12/19/22 10:40 DCW (Rec: 12/20/22 09:40 DCW [id number]) Special Tests Lumbar Spine Special Tests Lateral SI compression Test Results Negative Vertical Spine Loading Test Results Negative Otis Test Results Negative Straight Leg Raise Test Results Negative Standing Flexion Test Results Negative Slump Test Results Negative Manual Traction Test Results Negative Compression Test Results Negative A-P Shearing Test Results Negative PT-OP-M Strength Start: 12/19/22 17:31 Freq: Status: Active Protocol: Document 12/19/22 10:40 DCW (Rec: 12/20/22 09:40 DCW [id number]) Trunk Strength Trunk Manual Muscle Testing Core Stabilization Difficulty performing PPT and TrA contraction, required verbal and tactile cues PT-OP-Q Treatments Start: 12/19/22 17:31 Freq: Status: Active Protocol: Document 12/24/22 10:30 DCW (Rec: 12/24/22 11:12 DCW [id number]) Cardio Equipment Recumbent Elliptical (Biodex) Duration (Minutes) 5 Resistance 4 Seat Position 8 Gym Equipment Shuttle Recovery Bilateral Squats Details VCs for core contraction Resistance 75# Shuttle Recovery Platform Stable Unilateral Squats Details VCs for core contraction Resistance 37# Shuttle Recovery Platform Stable Therapeutic Exercises Supine Exercises PPT /c TrA Supine Exercise Name added marching and SLR Side bilateral Other Exercises Resisted Ambulation Other Exercise Name Resisted side-stepping Resistance Red Manual Therapy Treatment Soft Tissue Mobilization Low back Body Location posterior obliques, QL, Lumbar paraspinals Mobilization Type Strumming,Sustained Pressure Body Position Sidelying PT-OP-T Assessment and Plan Start: 12/19/22 17:31 Freq: Status: Active Protocol: Document 12/24/22 10:30 DCW (Rec: 12/24/22 11:12 DCW [id number]) Physical Therapy Assessment Impairments Impairments Activity Tolerance,Functional Activities,Functional Mobility ,Pain,ROM,Soft Tissue Mobility ,Strength,Tone Goals Two Impairment Pt experiences increased low back pain when standing up following an extended period of time sitting, or straightening up after bending foward. 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 LTG Duration 02/16/23 One Impairment Pt does not have an appropriate home exercise program Short Term Goal (STG) Pt to be independent and compliant with an appropriate HEP STG Duration 01/19/23 Assessment Summary Assessment Pt continues to do well, minimal cueing for new exercises, picks up on activities quickly. Focused today more on abdominal bracing and lateral lumbar STM . Physical Therapy Plan Frequency and Duration Frequency of Treatment 2x/Week Plan of Care Start Date 12/19/22 Plan of Care End Date 02/16/23 Therapeutic Interventions Therapeutic Interventions Balance Training,Home Exercise Program,Joint Mobilizations, Manual Therapy,Neuromuscular Re-education,Patient/Caregiver Education,Self-Care/Home Management,Soft Tissue Mobilization,Therapeutic Activities,Therapeutic Exercises Modalities Cold Pack/Ice Massage,Hot Packs,Ultrasound Next Visit Focus/Plan Next Note Type Treatment Note Next Visit Plan Core strengthening, lumbar stretching/mobility, STM
--- NOTE | 2022-12-26 11:18 | PT.OTN ---
Current Diagnoses Other chronic pain (12/26/22) Radiculopathy, lumbosacral region (12/26/22) Low back pain, unspecified (12/26/22) Physical Therapy Treatment Note PT-OP-A Visit Information Start: 12/19/22 17:31 Freq: Status: Active Protocol: Document 12/26/22 10:35 SP (Rec: 12/26/22 11:32 SP [id number]) Out-Patient Physical Therapy Visit Information Visit Information Visit Type Treatment Note Visit Start Time 10:35 Visit Stop Time 11:18 Total Visit Minutes 43 Visit Number 4 Number of WATCHMAKING TEACHER Visits 1 Evaluation Information Evaluation Date 12/19/22 PT-OP-B Current Condition Start: 12/19/22 17:31 Freq: Status: Active Protocol: Document 12/19/22 10:40 DCW (Rec: 12/19/22 17:57 DCW [id number]) Current Condition History of Current Condition Onset Date Multi-year history Current Complaints bilateral pain in lateral low back History of Current Condition Pt is a 77 year old male presenting with a multi-year history of low back pain. Pt reports it has bothered him for years, but has worsened over the past 12 months. Previously had pain for low back pain, he believes around 10 year ago, and still fairly consistently performed his HEP , including heel raises, standing hip abduction/ extension, hamstring stretchin , quad sets, single KtC, and LTR. Performs these in the AM, which helps loosen him up when he wakes up sore, but otherwise he finds that after this initially makes him feel better, he still tightens up throughout the day. Feels the worst getting up out of a chair, bending over and then straightening back up, or performing much lifting. Denies pain along his spine, notes it is more lateral, above his PSIS bilaterally. Prior Treatments and Tests Lumbar x-ray: IMPRESSION: Multilevel degenerative changes most severe at L5-S1. per Taryn Aguilar M.D. on PT-OP-C Subjective Start: 12/19/22 17:31 Freq: Status: Active Protocol: Document 12/26/22 10:35 SP (Rec: 12/26/22 11:32 SP [id number]) OP-PT Subjective Patient Comments Patient Comments Pt feeling fairly good today. PT-OP-F Manual Assessment Start: 12/19/22 17:31 Freq: Status: Active Protocol: Document 12/19/22 10:40 DCW (Rec: 12/20/22 09:40 DCW [id number]) Manual Assessments Soft Tissue Assessment Soft Tissue Mobility Assessment Increased tone and tenderness to palpation 3/4:wincing and withdraw bilaterally along lateral posterior trunk, in area of posterior obliques, superior to posterior iliac crest. Joint Mobility Assessment Joint Mobility Assessment No complaints of discomfort, minimal hypomobility with mobilizations of lumbar vertebrae PT-OP-K Range of Motion Start: 12/19/22 17:31 Freq: Status: Active Protocol: Document 12/19/22 10:40 DCW (Rec: 12/20/22 09:40 DCW [id number]) Lumbar Spine Range of Motion Lumbar Spine Active Degrees Testing Position Standing Flexion 70 Extension 20 Lateral Flexion Left 57 Lateral Flexion Right 53 ROM Limitations Pain Comments Lateral flexion measured in cm from fingertips to floor. Pt complains of ipsilateral pain with right lateral flexion PT-OP-L Special Tests Start: 12/19/22 17:31 Freq: Status: Active Protocol: Document 12/19/22 10:40 DCW (Rec: 12/20/22 09:40 DCW [id number]) Special Tests Lumbar Spine Special Tests Lateral SI compression Test Results Negative Vertical Spine Loading Test Results Negative Otis Test Results Negative Straight Leg Raise Test Results Negative Standing Flexion Test Results Negative Slump Test Results Negative Manual Traction Test Results Negative Compression Test Results Negative A-P Shearing Test Results Negative PT-OP-M Strength Start: 12/19/22 17:31 Freq: Status: Active Protocol: Document 12/19/22 10:40 DCW (Rec: 12/20/22 09:40 DCW [id number]) Trunk Strength Trunk Manual Muscle Testing Core Stabilization Difficulty performing PPT and TrA contraction, required verbal and tactile cues PT-OP-Q Treatments Start: 12/19/22 17:31 Freq: Status: Active Protocol: Document 12/26/22 10:35 SP (Rec: 12/26/22 11:32 SP [id number]) Cardio Equipment Recumbent Stepper (Sci-Fit) Duration (Minutes) 6 Resistance 3 Seat Position 9 071 miles- check feet in pedals Other UEs, LEs, hand proximal handle cued no UE/UT tension Gym Equipment Shuttle Recovery Bilateral Squats Details VCs for core contraction Resistance 75# (3 old bands) Shuttle Recovery Platform Stable Reps/Time x15 Unilateral Squats Details VCs for core contraction, knee / ankle alignment // Resistance 37# Shuttle Recovery Platform Stable Reps/Time x10 Therapeutic Ball LTR Exercise Details AB rotation, QL stretch (ask if wants HO next tx) Ball Size/Color 55cm Body Position Hooklying Reps/Duration 5 reps rotation, 2 reps hold stretch w/ Breath Bridging Exercise Details Bridging /c feet on ball Ball Size/Color Red - 55 cm Body Position Supine Therapeutic Exercises Supine Exercises PPT /c TrA Supine Exercise Name added marching (review SLR next tx) Side bilateral Reps/Minutes 2x5 reps alternating. Comments Mod cues for PPT, TA throughout lift Sitting Exercises STS Sitting Exercise Name w/ TA, rhomboid/LT recruitment Equipment Used approx 20>18 table height Reps/Minutes x5 reps Comments improve alignment and control asc/descent- cued hip hover dec knee tension PT-OP-T Assessment and Plan Start: 12/19/22 17:31 Freq: Status: Active Protocol: Document 12/26/22 10:35 SP (Rec: 12/26/22 11:32 SP [id number]) Physical Therapy Assessment Goals Two Impairment Pt experiences increased low back pain when standing up following an extended period of time sitting, or straightening up after bending foward. 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 LTG Duration 02/16/23 One Impairment Pt does not have an appropriate home exercise program Short Term Goal (STG) Pt to be independent and compliant with an appropriate HEP 12/26/22: TA/Pelvic tilts, core march, ball bridge, STS, palloff press. STG Duration 01/19/23 progressed 12/26/22 Assessment Summary Assessment Pt require max cues for PPT and TA, ankle/knee alignment more med rotation // with breath initially. Pt responded well with core fac effort throughout tx and improved self corrections. Inititated STS with scap Physical Therapy Plan Frequency and Duration Frequency of Treatment 2x/Week Plan of Care Start Date 12/19/22 Plan of Care End Date 02/16/23 Therapeutic Interventions Therapeutic Interventions Balance Training,Home Exercise Program,Joint Mobilizations, Manual Therapy,Neuromuscular Re-education,Patient/Caregiver Education,Self-Care/Home Management,Soft Tissue Mobilization,Therapeutic Activities,Therapeutic Exercises Modalities Cold Pack/Ice Massage,Hot Packs,Ultrasound Next Visit Focus/Plan Next Note Type Treatment Note Next Visit Plan REview HEP: palloff press, TA bridge, check if review LTR/ QL stretch ball for HEP/ HO home. Show self STMs ball wall POC: Core strengthening, lumbar stretching/mobility, STM
--- NOTE | 2022-12-31 11:14 | PT.OTN ---
Current Diagnoses Other chronic pain (12/31/22) Radiculopathy, lumbosacral region (12/31/22) Low back pain, unspecified (12/31/22) Physical Therapy Treatment Note PT-OP-A Visit Information Start: 12/19/22 17:31 Freq: Status: Active Protocol: Document 12/31/22 10:30 DCW (Rec: 12/31/22 11:14 DCW [id number]) Out-Patient Physical Therapy Visit Information Visit Information Visit Type Treatment Note Visit Start Time 10:30 Visit Stop Time 11:15 Total Visit Minutes 45 Visit Number 5 Number of LIBRARY MEDIA TECHNICIAN Visits 0 Evaluation Information Evaluation Date 12/19/22 PT-OP-B Current Condition Start: 12/19/22 17:31 Freq: Status: Active Protocol: Document 12/19/22 10:40 DCW (Rec: 12/19/22 17:57 DCW [id number]) Current Condition History of Current Condition Onset Date Multi-year history Current Complaints bilateral pain in lateral low back History of Current Condition Pt is a 77 year old male presenting with a multi-year history of low back pain. Pt reports it has bothered him for years, but has worsened over the past 12 months. Previously had pain for low back pain, he believes around 10 year ago, and still fairly consistently performed his HEP , including heel raises, standing hip abduction/ extension, hamstring stretchin , quad sets, single KtC, and LTR. Performs these in the AM, which helps loosen him up when he wakes up sore, but otherwise he finds that after this initially makes him feel better, he still tightens up throughout the day. Feels the worst getting up out of a chair, bending over and then straightening back up, or performing much lifting. Denies pain along his spine, notes it is more lateral, above his PSIS bilaterally. Prior Treatments and Tests Lumbar x-ray: IMPRESSION: Multilevel degenerative changes most severe at L5-S1. per Taryn Aguilar M.D. on PT-OP-C Subjective Start: 12/19/22 17:31 Freq: Status: Active Protocol: Document 12/31/22 10:30 DCW (Rec: 12/31/22 11:14 DCW [id number]) OP-PT Subjective Patient Comments Patient Comments Pt reports feeling quite well today, but notes that for some reason, yesterday the back was really giving me problems. PT-OP-F Manual Assessment Start: 12/19/22 17:31 Freq: Status: Active Protocol: Document 12/19/22 10:40 DCW (Rec: 12/20/22 09:40 DCW [id number]) Manual Assessments Soft Tissue Assessment Soft Tissue Mobility Assessment Increased tone and tenderness to palpation 3/4:wincing and withdraw bilaterally along lateral posterior trunk, in area of posterior obliques, superior to posterior iliac crest. Joint Mobility Assessment Joint Mobility Assessment No complaints of discomfort, minimal hypomobility with mobilizations of lumbar vertebrae PT-OP-K Range of Motion Start: 12/19/22 17:31 Freq: Status: Active Protocol: Document 12/19/22 10:40 DCW (Rec: 12/20/22 09:40 DCW [id number]) Lumbar Spine Range of Motion Lumbar Spine Active Degrees Testing Position Standing Flexion 70 Extension 20 Lateral Flexion Left 57 Lateral Flexion Right 53 ROM Limitations Pain Comments Lateral flexion measured in cm from fingertips to floor. Pt complains of ipsilateral pain with right lateral flexion PT-OP-L Special Tests Start: 12/19/22 17:31 Freq: Status: Active Protocol: Document 12/19/22 10:40 DCW (Rec: 12/20/22 09:40 DCW [id number]) Special Tests Lumbar Spine Special Tests Lateral SI compression Test Results Negative Vertical Spine Loading Test Results Negative Otis Test Results Negative Straight Leg Raise Test Results Negative Standing Flexion Test Results Negative Slump Test Results Negative Manual Traction Test Results Negative Compression Test Results Negative A-P Shearing Test Results Negative PT-OP-M Strength Start: 12/19/22 17:31 Freq: Status: Active Protocol: Document 12/19/22 10:40 DCW (Rec: 12/20/22 09:40 DCW [id number]) Trunk Strength Trunk Manual Muscle Testing Core Stabilization Difficulty performing PPT and TrA contraction, required verbal and tactile cues PT-OP-Q Treatments Start: 12/19/22 17:31 Freq: Status: Active Protocol: Document 12/31/22 10:30 DCW (Rec: 12/31/22 11:14 DCW [id number]) Cardio Equipment Recumbent Elliptical ([employer]) Duration (Minutes) 5 Resistance 5 Seat Position 8 Gym Equipment Shuttle Recovery Bilateral Squats Details VCs for core contraction Resistance 75# (3 old bands) Shuttle Recovery Platform Stable Reps/Time x15 Unilateral Squats Details VCs for core contraction, knee / ankle alignment // Resistance 37# Shuttle Recovery Platform Stable Reps/Time x10 Therapeutic Ball Resisted Trunk Rotation Exercise Details Resisted Trunk Rotation Ball Size/Color Green - 65 cm Lv 3 T-band Body Position Sitting LTR Exercise Details AB rotation, QL stretch (ask if wants HO next tx) Ball Size/Color 55cm Body Position Hooklying Reps/Duration 5 reps rotation, 2 reps hold stretch w/ Breath Manual Therapy Treatment Soft Tissue Mobilization Low back Body Location posterior obliques, QL, Lumbar paraspinals Mobilization Type Strumming,Sustained Pressure Body Position Sidelying PT-OP-T Assessment and Plan Start: 12/19/22 17:31 Freq: Status: Active Protocol: Document 12/31/22 10:30 DCW (Rec: 12/31/22 11:14 DCW [id number]) Physical Therapy Assessment Impairments Impairments Activity Tolerance,Functional Activities,Functional Mobility ,Pain,ROM,Soft Tissue Mobility ,Strength,Tone Goals Two Impairment Pt experiences increased low back pain when standing up following an extended period of time sitting, or straightening up after bending foward. 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 LTG Duration 02/16/23 One Impairment Pt does not have an appropriate home exercise program Short Term Goal (STG) Pt to be independent and compliant with an appropriate HEP STG Duration 01/19/23 Assessment Summary Assessment Pt appeared to be significantly more short of breath with activity today, although he reported that he didn't notice a difference. O2 Sat measured between 93-95% after all activities, rebounded to 97% with rest. Physical Therapy Plan Frequency and Duration Frequency of Treatment 2x/Week Plan of Care Start Date 12/19/22 Plan of Care End Date 02/16/23 Therapeutic Interventions Therapeutic Interventions Balance Training,Home Exercise Program,Joint Mobilizations, Manual Therapy,Neuromuscular Re-education,Patient/Caregiver Education,Self-Care/Home Management,Soft Tissue Mobilization,Therapeutic Activities,Therapeutic Exercises Modalities Cold Pack/Ice Massage,Hot Packs,Ultrasound Next Visit Focus/Plan Next Note Type Treatment Note Next Visit Plan Review HEP: palloff press, TA bridge, check if review LTR/ QL stretch ball for HEP/ HO home. Show self STMs ball wall POC: Core strengthening, lumbar stretching/mobility, STM
--- NOTE | 2023-01-02 11:16 | PT.OTN ---
Current Diagnoses Other chronic pain (01/02/23) Radiculopathy, lumbosacral region (01/02/23) Low back pain, unspecified (01/02/23) Physical Therapy Treatment Note PT-OP-A Visit Information Start: 12/19/22 17:31 Freq: Status: Active Protocol: Document 01/02/23 10:38 SP (Rec: 01/02/23 11:51 SP [id number]) Out-Patient Physical Therapy Visit Information Visit Information Visit Type Treatment Note Visit Start Time 10:38 Visit Stop Time 11:16 Total Visit Minutes 38 Visit Number 6 Number of PRE BILLING CLINICIAN Visits 1 Evaluation Information Evaluation Date 12/19/22 PT-OP-B Current Condition Start: 12/19/22 17:31 Freq: Status: Active Protocol: Document 12/19/22 10:40 DCW (Rec: 12/19/22 17:57 DCW [id number]) Current Condition History of Current Condition Onset Date Multi-year history Current Complaints bilateral pain in lateral low back History of Current Condition Pt is a 77 year old male presenting with a multi-year history of low back pain. Pt reports it has bothered him for years, but has worsened over the past 12 months. Previously had pain for low back pain, he believes around 10 year ago, and still fairly consistently performed his HEP , including heel raises, standing hip abduction/ extension, hamstring stretchin , quad sets, single KtC, and LTR. Performs these in the AM, which helps loosen him up when he wakes up sore, but otherwise he finds that after this initially makes him feel better, he still tightens up throughout the day. Feels the worst getting up out of a chair, bending over and then straightening back up, or performing much lifting. Denies pain along his spine, notes it is more lateral, above his PSIS bilaterally. Prior Treatments and Tests Lumbar x-ray: IMPRESSION: Multilevel degenerative changes most severe at L5-S1. per Taryn Aguilar M.D. on PT-OP-C Subjective Start: 12/19/22 17:31 Freq: Status: Active Protocol: Document 01/02/23 10:38 SP (Rec: 01/02/23 11:51 SP [id number]) OP-PT Subjective Patient Comments Patient Comments Pt reports back little sore. Demonstrates pelvic forward and upper body posterior with little heavy LE eccentric advancement. PT-OP-F Manual Assessment Start: 12/19/22 17:31 Freq: Status: Active Protocol: Document 12/19/22 10:40 DCW (Rec: 12/20/22 09:40 DCW [id number]) Manual Assessments Soft Tissue Assessment Soft Tissue Mobility Assessment Increased tone and tenderness to palpation 3/4:wincing and withdraw bilaterally along lateral posterior trunk, in area of posterior obliques, superior to posterior iliac crest. Joint Mobility Assessment Joint Mobility Assessment No complaints of discomfort, minimal hypomobility with mobilizations of lumbar vertebrae PT-OP-K Range of Motion Start: 12/19/22 17:31 Freq: Status: Active Protocol: Document 12/19/22 10:40 DCW (Rec: 12/20/22 09:40 DCW [id number]) Lumbar Spine Range of Motion Lumbar Spine Active Degrees Testing Position Standing Flexion 70 Extension 20 Lateral Flexion Left 57 Lateral Flexion Right 53 ROM Limitations Pain Comments Lateral flexion measured in cm from fingertips to floor. Pt complains of ipsilateral pain with right lateral flexion PT-OP-L Special Tests Start: 12/19/22 17:31 Freq: Status: Active Protocol: Document 12/19/22 10:40 DCW (Rec: 12/20/22 09:40 DCW [id number]) Special Tests Lumbar Spine Special Tests Lateral SI compression Test Results Negative Vertical Spine Loading Test Results Negative Otis Test Results Negative Straight Leg Raise Test Results Negative Standing Flexion Test Results Negative Slump Test Results Negative Manual Traction Test Results Negative Compression Test Results Negative A-P Shearing Test Results Negative PT-OP-M Strength Start: 12/19/22 17:31 Freq: Status: Active Protocol: Document 12/19/22 10:40 DCW (Rec: 12/20/22 09:40 DCW [id number]) Trunk Strength Trunk Manual Muscle Testing Core Stabilization Difficulty performing PPT and TrA contraction, required verbal and tactile cues PT-OP-Q Treatments Start: 12/19/22 17:31 Freq: Status: Active Protocol: Document 01/02/23 10:38 SP (Rec: 01/02/23 11:51 SP [id number]) Cardio Equipment Recumbent Elliptical ([email or web address]) Duration (Minutes) 5 Resistance 5 Seat Position 7, handles 4- SaO2 96% on RA- increase resp rate Other 40 RPM, cued good effort LE push w/ TA Gym Equipment Shuttle Recovery Bilateral Squats Details VCs for knee alignment/core contraction Resistance 75# (3 old bands) Shuttle Recovery Platform Stable Reps/Time x15 Unilateral Squats Details VCs for core contraction, knee / ankle alignment // Resistance 37# (1 new band) Shuttle Recovery Platform Stable Reps/Time x10 Therapeutic Ball LTR Exercise Details AB rotation, QL stretch (ask if wants HO next tx) Ball Size/Color 55cm Body Position Hooklying Reps/Duration 10 reps rotation, 2 reps hold stretch w/3Breaths Comments end tx for cool down ROM- good feedback Therapeutic Exercises Sitting Exercises Lumbar flexion stretch Sitting Exercise Name trial for LS flexion ROM- recheck and add HEP with HO if wish Reps/Minutes 20 sec Comments cued LEs wide, good feedback ES stretch STS Sitting Exercise Name w/ TA, rhomboid/LT/ arms across chest Equipment Used mesh chair x8 reps, + foam under feet x2 reps Comments improve alignment and control asc/descent- cued hip hinge slow descent Standing Exercises Pallof Press Standing Exercise Name Pallof press Side bilateral Resistance Lv 3>2 (press front navel, not shld) Reps/Minutes x5 reps x2 sets Comments pt challenged maintaining upperbody over pelvis for TA, felt LB Other Exercises Resisted Ambulation Other Exercise Name Resisted side-stepping Resistance Red>YTB Reps/Minutes 15 ft x2.5 laps Comments cued arms front hover over rail- better fwd TA posturing PT-OP-T Assessment and Plan Start: 12/19/22 17:31 Freq: Status: Active Protocol: Document 01/02/23 10:38 SP (Rec: 01/02/23 11:51 SP [id number]) Physical Therapy Assessment Goals Two Impairment Pt experiences increased low back pain when standing up following an extended period of time sitting, or straightening up after bending foward. Nursing Home Goal (LTG) Pt to report no increased pain upon first standing up over the course of four straight days in order to improve ability to perform daily functional mobility. LTG Duration 02/16/23 One Impairment Pt does not have an appropriate home exercise program Short Term Goal (STG) Pt to be independent and compliant with an appropriate HEP STG Duration 01/19/23 Assessment Summary Assessment Pt improve more TA support with upper body forward over pelvis w/ arms draped more front at side end tx post side stepping. Pt challenged with trunk alignment/TA support during paloff press so stopped discomfort tension in back so asked to DC at this time. Pt able to completed STS with better control/TA wt shift without UE support and slow descend sit last rep good form even on uneven cushion, limit tolerant reps due to knee discomfort. Physical Therapy Plan Frequency and Duration Frequency of Treatment 2x/Week Plan of Care Start Date 12/19/22 Plan of Care End Date 02/16/23 Therapeutic Interventions Therapeutic Interventions Balance Training,Home Exercise Program,Joint Mobilizations, Manual Therapy,Neuromuscular Re-education,Patient/Caregiver Education,Self-Care/Home Management,Soft Tissue Mobilization,Therapeutic Activities,Therapeutic Exercises Modalities Cold Pack/Ice Massage,Hot Packs,Ultrasound Next Visit Focus/Plan Next Note Type Treatment Note Next Visit Plan Review HEP: palloff press, TA bridge, check if review LTR/ QL stretch ball for HEP/ HO home. Show self STMs ball wall POC: Core strengthening, lumbar stretching/mobility, STM
--- NOTE | 2023-01-07 11:12 | PT.OTN ---
Current Diagnoses Other chronic pain (01/07/23) Radiculopathy, lumbosacral region (01/07/23) Low back pain, unspecified (01/07/23) Physical Therapy Treatment Note PT-OP-A Visit Information Start: 12/19/22 17:31 Freq: Status: Active Protocol: Document 01/07/23 10:30 DCW (Rec: 01/07/23 11:12 DCW [id number]) Out-Patient Physical Therapy Visit Information Visit Information Visit Type Treatment Note Visit Start Time 10:30 Visit Stop Time 11:15 Total Visit Minutes 45 Visit Number 7 Number of PARKING LINE PAINTER Visits 0 Evaluation Information Evaluation Date 12/19/22 PT-OP-B Current Condition Start: 12/19/22 17:31 Freq: Status: Active Protocol: Document 12/19/22 10:40 DCW (Rec: 12/19/22 17:57 DCW [id number]) Current Condition History of Current Condition Onset Date Multi-year history Current Complaints bilateral pain in lateral low back History of Current Condition Pt is a 77 year old male presenting with a multi-year history of low back pain. Pt reports it has bothered him for years, but has worsened over the past 12 months. Previously had pain for low back pain, he believes around 10 year ago, and still fairly consistently performed his HEP , including heel raises, standing hip abduction/ extension, hamstring stretchin , quad sets, single KtC, and LTR. Performs these in the AM, which helps loosen him up when he wakes up sore, but otherwise he finds that after this initially makes him feel better, he still tightens up throughout the day. Feels the worst getting up out of a chair, bending over and then straightening back up, or performing much lifting. Denies pain along his spine, notes it is more lateral, above his PSIS bilaterally. Prior Treatments and Tests Lumbar x-ray: IMPRESSION: Multilevel degenerative changes most severe at L5-S1. per Taryn Aguilar M.D. on PT-OP-C Subjective Start: 12/19/22 17:31 Freq: Status: Active Protocol: Document 01/07/23 10:30 DCW (Rec: 01/07/23 11:12 DCW [id number]) OP-PT Subjective Patient Comments Patient Comments Pt reports his back is actually pretty good today. PT-OP-F Manual Assessment Start: 12/19/22 17:31 Freq: Status: Active Protocol: Document 12/19/22 10:40 DCW (Rec: 12/20/22 09:40 DCW [id number]) Manual Assessments Soft Tissue Assessment Soft Tissue Mobility Assessment Increased tone and tenderness to palpation 3/4:wincing and withdraw bilaterally along lateral posterior trunk, in area of posterior obliques, superior to posterior iliac crest. Joint Mobility Assessment Joint Mobility Assessment No complaints of discomfort, minimal hypomobility with mobilizations of lumbar vertebrae PT-OP-K Range of Motion Start: 12/19/22 17:31 Freq: Status: Active Protocol: Document 12/19/22 10:40 DCW (Rec: 12/20/22 09:40 DCW [id number]) Lumbar Spine Range of Motion Lumbar Spine Active Degrees Testing Position Standing Flexion 70 Extension 20 Lateral Flexion Left 57 Lateral Flexion Right 53 ROM Limitations Pain Comments Lateral flexion measured in cm from fingertips to floor. Pt complains of ipsilateral pain with right lateral flexion PT-OP-L Special Tests Start: 12/19/22 17:31 Freq: Status: Active Protocol: Document 12/19/22 10:40 DCW (Rec: 12/20/22 09:40 DCW [id number]) Special Tests Lumbar Spine Special Tests Lateral SI compression Test Results Negative Vertical Spine Loading Test Results Negative Otis Test Results Negative Straight Leg Raise Test Results Negative Standing Flexion Test Results Negative Slump Test Results Negative Manual Traction Test Results Negative Compression Test Results Negative A-P Shearing Test Results Negative PT-OP-M Strength Start: 12/19/22 17:31 Freq: Status: Active Protocol: Document 12/19/22 10:40 DCW (Rec: 12/20/22 09:40 DCW [id number]) Trunk Strength Trunk Manual Muscle Testing Core Stabilization Difficulty performing PPT and TrA contraction, required verbal and tactile cues PT-OP-Q Treatments Start: 12/19/22 17:31 Freq: Status: Active Protocol: Document 01/07/23 10:30 DCW (Rec: 01/07/23 11:12 DCW [id number]) Cardio Equipment Recumbent Elliptical ([employer]) Duration (Minutes) 5 Resistance 5 Seat Position 8 Gym Equipment Shuttle Recovery Bilateral Squats Details VCs for knee alignment/core contraction Resistance 75# (3 old bands) Shuttle Recovery Platform Stable Reps/Time x15 Unilateral Squats Details VCs for core contraction, knee / ankle alignment // Resistance 37# (1 new band) Shuttle Recovery Platform Stable Reps/Time x10 Therapeutic Exercises Standing Exercises Pallof Press Standing Exercise Name Pallof press Side bilateral Resistance Lv 2 Reps/Minutes x5 reps x2 sets Other Exercises Resisted Ambulation Other Exercise Name Resisted side-stepping Resistance Red Reps/Minutes 15 ft x2 Comments cued arms front hover over rail- better fwd TA posturing Manual Therapy Treatment Soft Tissue Mobilization Low back Body Location posterior obliques, QL, Lumbar paraspinals Mobilization Type Strumming,Sustained Pressure Body Position Sidelying PT-OP-T Assessment and Plan Start: 12/19/22 17:31 Freq: Status: Active Protocol: Document 01/07/23 10:30 DCW (Rec: 01/07/23 11:12 DCW [id number]) Physical Therapy Assessment Impairments Impairments Activity Tolerance,Functional Activities,Functional Mobility ,Pain,ROM,Soft Tissue Mobility ,Strength,Tone Goals Two Impairment Pt experiences increased low back pain when standing up following an extended period of time sitting, or straightening up after bending foward. [facility] Goal (LTG) Pt to report no increased pain upon first standing up over the course of four straight days in order to improve ability to perform daily functional mobility. LTG Duration 02/16/23 One Impairment Pt does not have an appropriate home exercise program Short Term Goal (STG) Pt to be independent and compliant with an appropriate HEP STG Duration 01/19/23 Assessment Summary Assessment Pt doing well overall, feels comfortable with HEP, no complaints or difficulty with current low back pain. Will likely discharge following next visit. Physical Therapy Plan Frequency and Duration Frequency of Treatment 2x/Week Plan of Care Start Date 12/19/22 Plan of Care End Date 02/16/23 Therapeutic Interventions Therapeutic Interventions Balance Training,Home Exercise Program,Joint Mobilizations, Manual Therapy,Neuromuscular Re-education,Patient/Caregiver Education,Self-Care/Home Management,Soft Tissue Mobilization,Therapeutic Activities,Therapeutic Exercises Modalities Cold Pack/Ice Massage,Hot Packs,Ultrasound Next Visit Focus/Plan Next Note Type Treatment Note Next Visit Plan Review HEP: palloff press, TA bridge, check if review LTR/ QL stretch ball for HEP/ HO home. Show self STMs ball wall POC: Core strengthening, lumbar stretching/mobility, STM
--- NOTE | 2023-01-09 11:10 | PT.OTN ---
Current Diagnoses Other chronic pain (01/09/23) Radiculopathy, lumbosacral region (01/09/23) Low back pain, unspecified (01/09/23) Physical Therapy Treatment Note PT-OP-A Visit Information Start: 12/19/22 17:31 Freq: Status: Active Protocol: Document 01/09/23 10:30 DCW (Rec: 01/09/23 11:10 DCW [id number]) Out-Patient Physical Therapy Visit Information Visit Information Visit Type Discharge Summary Visit Start Time 10:30 Visit Stop Time 11:00 Total Visit Minutes 30 Visit Number 8 Number of MEDICAL REVIEWER Visits 0 Evaluation Information Evaluation Date 12/19/22 PT-OP-B Current Condition Start: 12/19/22 17:31 Freq: Status: Active Protocol: Document 12/19/22 10:40 DCW (Rec: 12/19/22 17:57 DCW [id number]) Current Condition History of Current Condition Onset Date Multi-year history Current Complaints bilateral pain in lateral low back History of Current Condition Pt is a 77 year old male presenting with a multi-year history of low back pain. Pt reports it has bothered him for years, but has worsened over the past 12 months. Previously had pain for low back pain, he believes around 10 year ago, and still fairly consistently performed his HEP , including heel raises, standing hip abduction/ extension, hamstring stretchin , quad sets, single KtC, and LTR. Performs these in the AM, which helps loosen him up when he wakes up sore, but otherwise he finds that after this initially makes him feel better, he still tightens up throughout the day. Feels the worst getting up out of a chair, bending over and then straightening back up, or performing much lifting. Denies pain along his spine, notes it is more lateral, above his PSIS bilaterally. Prior Treatments and Tests Lumbar x-ray: IMPRESSION: Multilevel degenerative changes most severe at L5-S1. per Taryn Aguilar M.D. on PT-OP-C Subjective Start: 12/19/22 17:31 Freq: Status: Active Protocol: Document 01/09/23 10:30 DCW (Rec: 01/09/23 11:10 DCW [id number]) OP-PT Subjective Patient Comments Patient Comments Pt reports his back is still doing pretty well, feels comfortable with discharge following today's visit, would like to review HEP. PT-OP-F Manual Assessment Start: 12/19/22 17:31 Freq: Status: Active Protocol: Document 12/19/22 10:40 DCW (Rec: 12/20/22 09:40 DCW [id number]) Manual Assessments Soft Tissue Assessment Soft Tissue Mobility Assessment Increased tone and tenderness to palpation 3/4:wincing and withdraw bilaterally along lateral posterior trunk, in area of posterior obliques, superior to posterior iliac crest. Joint Mobility Assessment Joint Mobility Assessment No complaints of discomfort, minimal hypomobility with mobilizations of lumbar vertebrae PT-OP-K Range of Motion Start: 12/19/22 17:31 Freq: Status: Active Protocol: Document 12/19/22 10:40 DCW (Rec: 12/20/22 09:40 DCW [id number]) Lumbar Spine Range of Motion Lumbar Spine Active Degrees Testing Position Standing Flexion 70 Extension 20 Lateral Flexion Left 57 Lateral Flexion Right 53 ROM Limitations Pain Comments Lateral flexion measured in cm from fingertips to floor. Pt complains of ipsilateral pain with right lateral flexion PT-OP-L Special Tests Start: 12/19/22 17:31 Freq: Status: Active Protocol: Document 12/19/22 10:40 DCW (Rec: 12/20/22 09:40 DCW [id number]) Special Tests Lumbar Spine Special Tests Lateral SI compression Test Results Negative Vertical Spine Loading Test Results Negative Otis Test Results Negative Straight Leg Raise Test Results Negative Standing Flexion Test Results Negative Slump Test Results Negative Manual Traction Test Results Negative Compression Test Results Negative A-P Shearing Test Results Negative PT-OP-M Strength Start: 12/19/22 17:31 Freq: Status: Active Protocol: Document 12/19/22 10:40 DCW (Rec: 12/20/22 09:40 DCW [id number]) Trunk Strength Trunk Manual Muscle Testing Core Stabilization Difficulty performing PPT and TrA contraction, required verbal and tactile cues PT-OP-Q Treatments Start: 12/19/22 17:31 Freq: Status: Active Protocol: Document 01/09/23 10:30 DCW (Rec: 01/09/23 11:10 DCW [id number]) Cardio Equipment Recumbent Elliptical (Zachary Prell) Duration (Minutes) 5 Resistance 5 Seat Position 8 Gym Equipment Therapeutic Ball LTR Exercise Details AB rotation, QL stretch Ball Size/Color Red - 55 cm Body Position Hooklying Reps/Duration 10 reps rotation, 2 reps hold stretch w/3Breaths Bridging Exercise Details Bridging /c feet on ball Ball Size/Color Red - 55 cm Body Position Supine Therapeutic Exercises Standing Exercises Extension Standing Exercise Name Hip Extension Side bilateral Resistance Lv 3 Pallof Press Standing Exercise Name Pallof press Side bilateral Resistance Lv 2 Reps/Minutes x5 reps x2 sets Other Exercises Resisted Ambulation Other Exercise Name Resisted side-stepping Resistance Lv 3 Reps/Minutes 15 ft x2 Comments cued arms front hover over rail- better fwd TA posturing PT-OP-T Assessment and Plan Start: 12/19/22 17:31 Freq: Status: Active Protocol: Document 01/09/23 10:30 DCW (Rec: 01/09/23 11:10 DCW [id number]) Physical Therapy Assessment Impairments Impairments Activity Tolerance,Functional Activities,Functional Mobility ,Pain,ROM,Soft Tissue Mobility ,Strength,Tone Goals Two Impairment Pt experiences increased low back pain when standing up following an extended period of time sitting, or straightening up after bending foward. Student Ambassador Goal (LTG) Pt to report no increased pain upon first standing up over the course of four straight days in order to improve ability to perform daily functional mobility. LTG Duration Met One Impairment Pt does not have an appropriate home exercise program Short Term Goal (STG) Pt to be independent and compliant with an appropriate HEP STG Duration Met Progress Towards Goals Progress Towards Goals Goals Met Assessment Summary Assessment Pt has met his goals, feels good about discharge following today's visit. Spent today reviewing and streamlining his HEP, pt in agreement with plan/ Pt will be discharged from skilled PT at this time. Physical Therapy Plan Frequency and Duration Frequency of Treatment 2x/Week Plan of Care Start Date 12/19/22 Plan of Care End Date 02/16/23 Therapeutic Interventions Therapeutic Interventions Balance Training,Home Exercise Program,Joint Mobilizations, Manual Therapy,Neuromuscular Re-education,Patient/Caregiver Education,Self-Care/Home Management,Soft Tissue Mobilization,Therapeutic Activities,Therapeutic Exercises Modalities Cold Pack/Ice Massage,Hot Packs,Ultrasound Discharge Physical Therapy Discharge Reasons Goals Met Next Visit Focus/Plan Next Note Type Discharge Summary
== END 2023-01-10 14:12 | disposition home or self-care (01) ==
LOC: PHYS 10:30
PROVIDERS: Family Provider Internal Medicine; PCP Internal Medicine; Referring Provider Internal Medicine; Visit Provider Internal Medicine
DX: M54.50 Low back pain, unspecified (principal); G89.29 Other chronic pain; M54.17 Radiculopathy, lumbosacral region
CPT/HCPCS: 97110; 97140; 97161

== ENCOUNTER → 2023-08-22 11:50 | Outpatient (CLI) | payer MEDICARE, OTHER, SELFPAY ==
[2023-08-22 12:42] LABS: Alanine Aminotransferase 35 IU/L (<50); Albumin Globulin Ratio 1.5 (1.0-2.8); Alkaline Phosphatase 53 U/L (38-126); Aspartate Aminotransferase 32 IU/L (17-59); BUN Creatinine Ratio 13.9 (6-22); Bilirubin Total 0.6 mg/dL (0.2-1.3); Blood Urea Nitrogen 15 mg/dL (9-20); Calcium 9.4 mg/dL (8.4-10.2); Carbon Dioxide 27 mmol/L (22-32); Chloride 100 mmol/L (98-107); Cholesterol 121 mg/dL (140-199); Estimated Glomerular Filt Rate > 60 mL/min (>60); Globulin 2.7 g/dL (1.7-4.1); Glucose 100 mg/dL (80-110); HDL Cholesterol 44 mg/dL (40-60); HEMOLYSIS < 15 (0-50); LDL Cholesterol Calculated 47 mg/dL (<100); Potassium 5.2 mmol/L (3.4-5.1); Sodium 134 mmol/L (137-145); Total Protein 6.7 g/dL (6.3-8.2); Triglycerides 148 mg/dL (35-150)
[2023-08-22 13:15] LABS: Prostate Specific Antigen 0.189 ng/mL (0.10-4.00)
== END ==
PROVIDERS: Family Provider Internal Medicine; PCP Internal Medicine; Referring Provider Internal Medicine; Visit Provider Internal Medicine
DX: E78.2 Mixed hyperlipidemia (principal); N40.1 Benign prostatic hyperplasia with lower urinary tract symptoms; I50.32 Chronic diastolic (congestive) heart failure
CPT/HCPCS: 36415; 80053; 80061; 84153

== ENCOUNTER → 2024-01-15 10:10 | Outpatient (CLI) | payer MEDICARE, OTHER, SELFPAY ==
[2024-01-15 11:23] LABS: Add Manual Diff / Slide Review NO; Basophils Absolute Auto 100 /uL (0-100); Eosinophils Absolute Auto 200 /uL (0-450); Eosinophils Percent Auto 4.3 % (2-4); Hematocrit 41.9 % (41-53); Hemoglobin 14.6 g/dL (13.5-17.5); Lymphocytes Absolute Auto 1000 /uL (1100-4500); Lymphocytes Percent Auto 19.9 % (25-40); Mean Corpuscular HGB Conc 34.8 % (30-36); Mean Corpuscular Hemoglobin 31.9 PG (26-34); Mean Corpuscular Volume 91.8 fL (80-100); Monocytes Absolute Auto 600 /uL (0-900); Monocytes Percent Auto 11.7 % (3-14); Neutrophils Absolute Auto 3200 /uL (1500-7000); Neutrophils Percent Auto 63.1 % (50-75); Platelet Count 215 X10^3/uL (150-400); Red Blood Cell Count 4.56 X10^6/uL (4.5-5.9); White Blood Cell Count 5.1 X10^3/uL (4.5-11.0)
[2024-01-15 11:46] LABS: BUN Creatinine Ratio 12.7 (6-22); Blood Urea Nitrogen 13 mg/dL (9-20); Calcium 8.8 mg/dL (8.4-10.2); Carbon Dioxide 25 mmol/L (22-32); Chloride 101 mmol/L (98-107); Estimated Glomerular Filt Rate > 60 mL/min (>60); Glucose 103 mg/dL (80-110); HEMOLYSIS < 15 (0-50); Magnesium 2.2 mg/dL (1.6-2.3); Potassium 4.4 mmol/L (3.4-5.1); Sodium 134 mmol/L (137-145)
[2024-01-15 12:13] LABS: Thyroid Stimulating Hormone 1.06 uIU/mL (0.47-4.68)
[2024-01-17 11:26] LABS: x Labcorp Estim. Avg Glu (eAG) 105 mg/dL (.); x Labcorp Hemoglobin A1c 5.3 % (4.8-5.6)
== END ==
LOC: LAB 10:12
PROVIDERS: Family Provider Internal Medicine; PCP Internal Medicine; Referring Provider Internal Medicine Cardiovascular Disease; Visit Provider Internal Medicine Cardiovascular Disease
DX: E78.5 Hyperlipidemia, unspecified (principal); I10 Essential (primary) hypertension; R73.9 Hyperglycemia, unspecified; I25.10 Atherosclerotic heart disease of native coronary artery without angina pectoris
CPT/HCPCS: 36415; 80048; 83036; 83735; 84439; 84443; 85025

== ENCOUNTER → 2024-08-24 10:20 | Outpatient (CLI) | payer MEDICARE, OTHER, SELFPAY ==
--- NOTE | 2024-08-24 10:21 | DI.RAD.S_ITS ---
PROCEDURE: XR KNEE RT 3V INDICATIONS: knee djd TECHNIQUE: 3 views of the knee were acquired. COMPARISON: None. FINDINGS: Bones: There are no osseous abnormalities. Joints: Severe lateral patellofemoral and mild medial tibial femoral degenerative change . 9mm loose body present in the anterior tibial femoral joint appreciated. 9 mm loose body in the anterior tibial femoral joint. Soft tissues: Normal IMPRESSION: Severe patellofemoral degeneration . Small loose body anterior tibial femoral joint Dictated by: Zander Al M.D. on 08/25/2024 at 7:58 Approved by: Zander Al M.D. on 08/25/2024 at 8:00
== END ==
PROVIDERS: Family Provider Internal Medicine; PCP Internal Medicine; Referring Provider Physical Medicine & Rehabilitation; Visit Provider Physical Medicine & Rehabilitation
DX: M17.11 Unilateral primary osteoarthritis, right knee (principal); M23.41 Loose body in knee, right knee
CPT/HCPCS: 73562

== ENCOUNTER → 2024-12-10 16:13 | Outpatient (CLI) | payer MEDICARE, OTHER, SELFPAY ==
[2024-12-10 17:25] LABS: Hematocrit 41.2 % (41-53); Hemoglobin 14.3 g/dL (13.5-17.5); Mean Corpuscular HGB Conc 34.7 % (30-36); Mean Corpuscular Hemoglobin 32.4 PG (26-34); Mean Corpuscular Volume 93.4 fL (80-100); Platelet Count 231 X10^3/uL (150-400); Red Blood Cell Count 4.41 X10^6/uL (4.5-5.9); Red Cell Distribution Width 13.3 % (11.6-14.8); White Blood Cell Count 6.1 X10^3/uL (4.5-11.0)
[2024-12-10 17:36] LABS: Hemoglobin A1C% w Est Avg Glu 5.2 % (4.0-6.0)
[2024-12-10 17:47] LABS: Aspartate Aminotransferase 30 IU/L (17-59); BUN Creatinine Ratio 15.5 (6-22); Blood Urea Nitrogen 18 mg/dL (9-20); Calcium 8.9 mg/dL (8.4-10.2); Carbon Dioxide 28 mmol/L (22-32); Chloride 103 mmol/L (98-107); Cholesterol 137 mg/dL (140-199); Estimated Glomerular Filt Rate > 60 mL/min (>60); Glucose 97 mg/dL (80-110); HDL Cholesterol 47 mg/dL (40-60); HEMOLYSIS < 15 (0-50); LDL Cholesterol Calculated 35 mg/dL (<100); Potassium 4.5 mmol/L (3.4-5.1); Sodium 135 mmol/L (137-145); Triglycerides 276 mg/dL (35-150)
[2024-12-10 18:16] LABS: Prostate Specific Antigen 1.08 ng/mL (0.10-4.00)
[2024-12-10 18:18] LABS: TSH w/ Reflex to FT4 1.29 uIU/mL (0.47-4.68)
[2024-12-10 18:35] LABS: Vitamin B12 Reflex MMA if <400 824 pg/mL (239-931)
== END ==
PROVIDERS: Family Provider Internal Medicine; PCP Internal Medicine; Referring Provider Internal Medicine; Visit Provider Internal Medicine
DX: I50.32 Chronic diastolic (congestive) heart failure (principal); R73.01 Impaired fasting glucose; N40.1 Benign prostatic hyperplasia with lower urinary tract symptoms; E78.2 Mixed hyperlipidemia; E53.8 Deficiency of other specified B group vitamins
CPT/HCPCS: 36415; 80048; 80061; 82607; 83036; 84153; 84155; 84165; 84443; 84450; 85027

== ENCOUNTER → 2025-01-12 07:25 | Outpatient (CLI) | payer MEDICARE, OTHER, SELFPAY ==
[2025-01-12 08:46] LABS: Add Manual Diff / Slide Review NO; Basophils Absolute Auto 0 /uL (0-100); Basophils Percent Auto 0.9 % (0-2); Eosinophils Absolute Auto 200 /uL (0-450); Eosinophils Percent Auto 3.7 % (2-4); Hemoglobin 14.7 g/dL (13.5-17.5); Lymphocytes Absolute Auto 900 /uL (1100-4500); Lymphocytes Percent Auto 17.6 % (25-40); Mean Corpuscular HGB Conc 34.2 % (30-36); Mean Corpuscular Hemoglobin 32.3 PG (26-34); Mean Corpuscular Volume 94.6 fL (80-100); Monocytes Absolute Auto 500 /uL (0-900); Monocytes Percent Auto 10.4 % (3-14); Neutrophils Absolute Auto 3400 /uL (1500-7000); Neutrophils Percent Auto 67.4 % (50-75); Platelet Count 209 X10^3/uL (150-400); Red Blood Cell Count 4.54 X10^6/uL (4.5-5.9); Red Cell Distribution Width 13.5 % (11.6-14.8)
[2025-01-12 09:01] LABS: Hemoglobin A1C% w Est Avg Glu 4.9 % (4.0-6.0)
[2025-01-12 09:21] LABS: BUN Creatinine Ratio 14.9 (6-22); Blood Urea Nitrogen 18 mg/dL (9-20); Calcium 9.1 mg/dL (8.4-10.2); Carbon Dioxide 25 mmol/L (22-32); Chloride 105 mmol/L (98-107); Estimated Glomerular Filt Rate > 60 mL/min (>60); Glucose 110 mg/dL (80-110); HEMOLYSIS 84 (0-50); Sodium 134 mmol/L (137-145)
[2025-01-12 09:22] LABS: Magnesium 2.1 mg/dL (1.6-2.3); Potassium 5.2 mmol/L (3.4-5.1)
[2025-01-12 09:35] LABS: T4 Total Thyroxine 6.06 ug/dL (5.5-11.0)
[2025-01-12 09:49] LABS: Thyroid Stimulating Hormone 1.68 uIU/mL (0.47-4.68)
[2025-01-14 08:02] LABS: Free T4, Direct Thyroxine 1.17 ng/dL (0.78-2.19)
== END ==
PROVIDERS: Family Provider Internal Medicine; PCP Internal Medicine; Referring Provider Internal Medicine Cardiovascular Disease; Visit Provider Internal Medicine Cardiovascular Disease
DX: E78.5 Hyperlipidemia, unspecified (principal); R73.9 Hyperglycemia, unspecified; I10 Essential (primary) hypertension; I25.10 Atherosclerotic heart disease of native coronary artery without angina pectoris
CPT/HCPCS: 36415; 80048; 83036; 83735; 84436; 84439; 84443; 85025

== ENCOUNTER → 2025-01-28 07:12 | Outpatient (CLI) | payer MEDICARE, OTHER, SELFPAY ==
[2025-01-28 08:52] LABS: Add Manual Diff / Slide Review NO; Basophils Absolute Auto 0 /uL (0-100); Basophils Percent Auto 0.8 % (0-2); Eosinophils Absolute Auto 200 /uL (0-450); Eosinophils Percent Auto 4.6 % (2-4); Hematocrit 41.9 % (41-53); Hemoglobin 14.6 g/dL (13.5-17.5); Lymphocytes Absolute Auto 1100 /uL (1100-4500); Lymphocytes Percent Auto 23.1 % (25-40); Mean Corpuscular HGB Conc 34.8 % (30-36); Mean Corpuscular Hemoglobin 32.9 PG (26-34); Mean Corpuscular Volume 94.5 fL (80-100); Monocytes Absolute Auto 500 /uL (0-900); Monocytes Percent Auto 11.9 % (3-14); Neutrophils Absolute Auto 2700 /uL (1500-7000); Neutrophils Percent Auto 59.6 % (50-75); Platelet Count 210 X10^3/uL (150-400); Red Blood Cell Count 4.43 X10^6/uL (4.5-5.9); Red Cell Distribution Width 13.5 % (11.6-14.8); White Blood Cell Count 4.6 X10^3/uL (4.5-11.0)
[2025-01-28 09:03] LABS: Hemoglobin A1C% w Est Avg Glu 4.8 % (4.0-6.0)
[2025-01-28 09:14] LABS: BUN Creatinine Ratio 13.7 (6-22); Blood Urea Nitrogen 16 mg/dL (9-20); Calcium 9.2 mg/dL (8.4-10.2); Carbon Dioxide 25 mmol/L (22-32); Chloride 105 mmol/L (98-107); Estimated Glomerular Filt Rate > 60 mL/min (>60); Glucose 88 mg/dL (80-110); HEMOLYSIS < 15 (0-50); Magnesium 2.3 mg/dL (1.6-2.3); Potassium 4.6 mmol/L (3.4-5.1); Sodium 137 mmol/L (137-145)
[2025-01-28 09:27] LABS: Free T4, Direct Thyroxine 0.97 ng/dL (0.78-2.19)
[2025-01-28 09:41] LABS: Thyroid Stimulating Hormone 1.15 uIU/mL (0.47-4.68)
== END ==
PROVIDERS: Family Provider Internal Medicine; PCP Internal Medicine; Referring Provider Internal Medicine Cardiovascular Disease; Visit Provider Internal Medicine Cardiovascular Disease
DX: E78.5 Hyperlipidemia, unspecified (principal); R73.9 Hyperglycemia, unspecified; I10 Essential (primary) hypertension; I25.10 Atherosclerotic heart disease of native coronary artery without angina pectoris
CPT/HCPCS: 36415; 80048; 83036; 83735; 84439; 84443; 85025